=== PATIENT | male | born 1965 | race Two or more races ===

== ENCOUNTER 2017-04-12 09:39 | Inpatient (IN) | payer MEDICARE, MEDICAID ==
[2017-04-12] VITALS (37 sets, daily range): BP systolic 66–137; BP diastolic 28–91
[~2017-04-12] VITALS: Ht 177.8 cm; Wt 91.2 kg
[2017-04-12] MEDS ORDERED: IV NS 0.9% 1,000 ML BAG IV ONE (10:00)
[2017-04-12] MEDS ORDERED: PIPERACILLIN /TAZOBACTAM 3.375 G in IV D5W 50 ML IV ONE (10:00)
[2017-04-12] MEDS ORDERED: VANCOMYCIN 1 GM in IV D5W 250 ML IV ONE (10:00)
--- NOTE | 2017-04-12 10:00 | NUR ---
BBRA 79 FRM HOME C/O WEAKNESS AND SOB X 2 WEEKS. SEEN BY MD FOR EVAL. NOTED COLD SKIN WITH CORE TEMP OF 92. FAMILY MEMBER AT BS FOR INFO. NOTED AMPUTATED FEET. SAFETY AND COMFORT MEASURES PROVIDED. WILL MONITOR.
[2017-04-12 10:15] LABS: BASOPHILS % (AUTO) 2.1 % (0.0-2.0); EOSINOPHILS % (AUTO) 0.1 % (0.0-6.0); HEMATOCRIT 37 % (39-51); HEMOGLOBIN 11.6 g/dL (13.5-17.5); LYMPHOCYTES # (AUTO) 2.9 /CMM (0.8-4.8); MEAN CORPUSCULAR HEMOGLOBIN 28 PG (26.0-33.0); MEAN CORPUSCULAR HGB CONC 31 g/dl (31.0-36.0); MEAN CORPUSCULAR VOLUME 90 fL (80-96); MONOCYTES # (AUTO) 0.5 /CMM (0.1-1.30); NEUTROPHILS # (AUTO) 43.1 /CMM (1.8-8.9); NEUTROPHILS % (AUTO) 90.8 % (43.0-81.0); RDW COEFFICIENT OF VARIATION 17.5 (11.5-15.0); RED BLOOD CELL COUNT(AUTO) 4.15 MIL/uL (4.5-6.0)
--- NOTE | 2017-04-12 10:15 | NUR ---
IV ACCESS STARTED X 2. BLOOD AND CULTURES DRAWN. PER PT HE DOES NOT PRODUCE URINE ANYMORE. AWARE.
[2017-04-12 10:19] LABS: PLATELET COUNT (AUTO) 995 /CMM (150-450); WHITE BLOOD COUNT (AUTO) 47.5 K/uL (4.3-11.0)
[2017-04-12] MEDS ORDERED: MORPHINE SULFATE INJ 4 MG/ML DISP.SYRIN ONE (10:26)
[2017-04-12] MEDS ORDERED: ONDANSETRON HCL 4 MG/5 ML SOLUTION ONE (10:26)
[2017-04-12 10:27] LABS: CALCIUM, SERUM 9.7 mg/dL (8.5-10.1); CHLORIDE 88 mmol/L (98-107); GLUCOSE 110 mg/dL (74-106); POTASSIUM 4.4 mmol/L (3.5-5.1); SODIUM SERUM 138 mmol/L (136-145); UREA NITROGEN, BLOOD 57 mg/dL (7-18)
[2017-04-12 10:28] LABS: INR 1.31 (0.85-1.15)
[2017-04-12 10:29] LABS: CREATININE 13.2 mg/dL (0.6-1.3)
[2017-04-12] MEDS ORDERED: ONDANSETRON HCL/PF 4 MG/2 ML VIAL IV ONE (10:30)
[2017-04-12] MEDS ORDERED: MORPHINE SULFATE INJ 2 MG/ML DISP.SYRIN IV ONE (10:30)
--- NOTE | 2017-04-12 10:30 | NUR ---
PT MEDICATED ORDERED.
[2017-04-12 10:32] LABS: TROPONIN I < 0.017 ng/mL (0.00-0.056)
[2017-04-12 10:33] LABS: ALANINE AMINOTRANSFERASE 38 U/L (12-78); ALBUMIN 2.8 g/dL (3.4-5.0); ALKALINE PHOSPHATASE 106 U/L (46-116); ASPARTATE AMINOTRANSFERASE 32 U/L (15-37); BILIRUBIN,DIRECT 0.2 mg/dL (0.0-0.2); BILIRUBIN,TOTAL 0.5 mg/dL (0.2-1.0); TOTAL PROTEIN, SERUM 9.4 g/dL (6.4-8.2)
[2017-04-12 10:40] LABS: BAND % (MANUAL) 4 % (0.0-5.0); LYMPHOCYTES % (MANUAL) 12 % (16-48); METAMYELOCYTES % 1 % (0-0); MONOCYTES % (MANUAL) 5 % (0-11.0); MYELOCYTES % 1 % (0-0); NEUTROPHILS % (MANUAL) 77 (42-76)
--- NOTE | 2017-04-12 10:40 | NUR ---
RT AT FOR ABG.
--- NOTE | 2017-04-12 10:43 | NUR ---
IRVING AT BS.
[2017-04-12 11:00] LABS: CARBON DIOXIDE 3 mmol/L (21-32)
[2017-04-12 11:48] LABS: ABG BASE EXCESS -32.7 mmol/L; ABG OXYGEN SATURATION 78.4 % (92.0-98.5); ABG PCO2 21.5 mmHg (35.0-45.0); ABG PH 6.685 (7.350-7.450); COHb 0.1 % (0.5-1.5); MetHb 0.7 % (0.0-1.5); O2Hb 77.8 % (94.0-97.0); SITE, ABG LEFT ARM
[2017-04-12] MEDS ORDERED: Sodium Bicarbonate 150 MEQ in IV NS 0.9% 1,000 ML IV PRN (12:00)
[2017-04-12] MEDS ORDERED: SODIUM BICARBONATE SYR 50 MEQ/50 ML DISP.SYRIN IV ONE ×3 (12:00→14:00)
[2017-04-12] MEDS ORDERED: SODIUM BICARBONATE SYR 50 MEQ/50 ML DISP.SYRIN ONE (12:12)
--- NOTE | 2017-04-12 12:45 | NUR ---
REPORT GIVEN TO ROCHELLE QUEZADA FOR ICU 257.
[2017-04-12] MEDS ORDERED: NOREPINEPHRINE 8 MG in IV D5W 500 ML IV PRN ×2 (13:00→21:00)
--- NOTE | 2017-04-12 13:15 | NUR ---
ERP PROGRAMMER ADMITTED PT INTO ICU FROM ER VIA [facility] WITH MONITOR. PT ADMITTED FOR SEPSIS AND ABNORMAL LABS. PT HYPOTHERMIC IN ER. ROBIN HUGGER IN PLACE. PT AROUSEABLE, ABLE TO FOLLOW COMMANDS. SON HERE TO SEE PT.
[2017-04-12] MEDS ORDERED: FEE PK DOSING 1 MIN EA MC ONE (13:19)
[2017-04-12 13:36] LABS: ABG BASE EXCESS -30.7 mmol/L; ABG OXYGEN SATURATION 96.6 % (92.0-98.5); ABG PCO2 15.8 mmHg (35.0-45.0); AaDO2 30.7 mmHg; COHb 0.3 % (0.5-1.5); MetHb 1.4 % (0.0-1.5); SITE, ABG Right Femoral
--- NOTE | 2017-04-12 14:30 | NUR ---
CLINICAL DIETICIAN PICC LINE PLACED. DRESSING INTACT. LINE FLUSHED WITH NS.
--- NOTE | 2017-04-12 15:03 | NUR ---
OK TO USE PICC LINE.
--- NOTE | 2017-04-12 15:30 | NUR ---
SHEETER HELPER PT NEEDS IMMEDIATE DIALYSIS PER NEPHROLOGY. DIALYSIS CATHETER PLACED BY DR WILDER AFTER CONSENT OBTAINED FROM SON. DIALYSIS BEING SET UP NOW.
[2017-04-12] MEDS: PIPERACILLIN /TAZOBACTAM 2.25 G in IV NS 0.9% 50 ML IV SCH ×2 (15:45→23:29)
[2017-04-12] MEDS ORDERED: ALBUMIN 25% 25 GM in PREMIX 1 EA IV PRN (16:00)
[2017-04-12] MEDS ORDERED: CALC0.253 PO (17:02)
[2017-04-12] MEDS ORDERED: SEVE800T8 PO (17:02)
[2017-04-12] MEDS ORDERED: FOLI1TAB16 PO (17:02)
[2017-04-12] MEDS ORDERED: JANUMET PO (17:02)
[2017-04-12] MEDS ORDERED: CALC667C6 PO (17:02)
[2017-04-12] MEDS ORDERED: ATOR20TA PO (17:02)
[2017-04-12] MEDS ORDERED: ASPI-1169 PO (17:02)
[2017-04-12] MEDS ORDERED: AMLO10TA2 PO (17:02)
[2017-04-12] MEDS ORDERED: VITA1TAB18 PO (17:02)
[2017-04-12] MEDS ORDERED: ERGO500014 PO (17:02)
[2017-04-12] MEDS ORDERED: NIFE60TA69 PO (17:02)
[2017-04-12] MEDS ORDERED: ATOR40TA PO (17:16)
--- NOTE | 2017-04-12 17:45 | NUR ---
MSWS HEMODIALYSIS COMPLETED. TOTAL OUTPUT 300 ML. PT MORE AWAKE NOW.
--- NOTE | 2017-04-12 19:00 | NUR ---
SALES ASSOCIATE KEY HOLDER PTS TEMPERATURE NORMALIZING WITH ROBIN HUGGER. PT MORE AWAKE AND FOLLOWING COMMANDS. SPO2 100% ON 4L NC. CARE ENDORSED TO RECRUITMENT SPECIALIST RN.
--- NOTE | 2017-04-12 20:00 | NUR ---
received pt from day shift, alert, follows commands, SR, SBP 78-82, started on levo at 2mcg, receiving NS with 3 amps of bicarb, on 4L 02 sat well, NPO, anuric, HD pt, had HD today, v/s stable, no pain, pt turns and repositions by himself, family at the bedside.
[2017-04-12] MEDS: Sodium Bicarbonate 150 MEQ in IV NS 0.9% 1,000 ML IV PRN (21:04)
[2017-04-12] MEDS: FLUCONAZOLE IN NS 100 MG in PREMIX 1 EA IV SCH ×2 (21:07)
[2017-04-12] MEDS: HEPARIN SODIUM, PORCINE 5000 UNITS/1 ML VIAL SQ SCH (21:08)
[2017-04-13] VITALS (43 sets, daily range): BP systolic 90–160; BP diastolic 30–81
--- NOTE | 2017-04-13 00:11 | NUR ---
pt is resting in the bed, alert, follows commands, SR, receiving levo at 4mcg, v/s stable, no pain.
[2017-04-13] MEDS: Sodium Bicarbonate 150 MEQ in IV NS 0.9% 1,000 ML IV PRN (02:32)
--- NOTE | 2017-04-13 04:15 | NUR ---
pt is resting in the bed, alert, follows commands, SR, on levo at 2mcg, on 4L 02 sat well, v/s stable, no pain, pt cleaned and changed.
[2017-04-13 05:00] LABS: BASOPHILS % (AUTO) 0.1 % (0.0-2.0); HEMATOCRIT 25 % (39-51); LYMPHOCYTES # (AUTO) 1.5 /CMM (0.8-4.8); LYMPHOCYTES % (AUTO) 6.3 % (20.0-44.0); MEAN CORPUSCULAR HEMOGLOBIN 28 PG (26.0-33.0); MEAN CORPUSCULAR HGB CONC 32 g/dl (31.0-36.0); MEAN CORPUSCULAR VOLUME 87 fL (80-96); MONOCYTES # (AUTO) 1.8 /CMM (0.1-1.30); MONOCYTES % (AUTO) 7.9 % (2.0-12.0); NEUTROPHILS # (AUTO) 19.9 /CMM (1.8-8.9); NEUTROPHILS % (AUTO) 85.7 % (43.0-81.0); PLATELET COUNT (AUTO) 491 /CMM (150-450); RDW COEFFICIENT OF VARIATION 18.2 (11.5-15.0); WHITE BLOOD COUNT (AUTO) 23.2 K/uL (4.3-11.0)
[2017-04-13 05:17] LABS: CALCIUM, SERUM 7.6 mg/dL (8.5-10.1); MAGNESIUM 1.9 mg/dL (1.8-2.4); POTASSIUM 4.8 mmol/L (3.5-5.1)
[2017-04-13 05:22] LABS: IRON, SERUM 19 ug/dl (50-175); TOTAL IRON BINDING CAPACITY 108 ug/dl (250-450)
[2017-04-13 05:29] LABS: CREATININE 7.6 mg/dL (0.6-1.3)
[2017-04-13 05:30] LABS: FERRITIN 952 ng/mL (8-388)
[2017-04-13 05:39] LABS: LYMPHOCYTES % (MANUAL) 7 % (16-48); MONOCYTES % (MANUAL) 8 % (0-11.0); NEUTROPHILS % (MANUAL) 85 (42-76)
--- NOTE | 2017-04-13 05:39 | NUR ---
BS 21, D50 given.
[2017-04-13] MEDS ORDERED: DEXTROSE 50%-WATER 50 ML DISP.SYRIN IVP ONE (06:00)
--- NOTE | 2017-04-13 07:30 | NUR ---
ICU/RN: Pt received in bed, A&Ox4, denies pain and discomfort. L foot stump elevated, no s/s infection, edges well approximated, R foot digit amputation dressing C/D/I. Off Levo at 0700, will maintain SBP within parameters. Educated on POC, verbalized understanding.
[2017-04-13] MEDS: PANTOPRAZOLE 40 MG VIAL IV SCH (08:26)
[2017-04-13] MEDS: HEPARIN SODIUM, PORCINE 5000 UNITS/1 ML VIAL SQ SCH ×2 (08:27→18:11)
[2017-04-13] MEDS: PIPERACILLIN /TAZOBACTAM 2.25 G in IV NS 0.9% 50 ML IV SCH ×3 (08:27→23:42)
--- NOTE | 2017-04-13 08:30 | NUR ---
RN WILL CLARIFY CT ORDER. REASON FOR EXAM IS TO RULE OUT MASS OR MALIGNANCY, WHICH IS USUALLY DONE WITH CONTRAST.
--- NOTE | 2017-04-13 09:15 | NUR ---
ICU/RN: Dr Savage at bedside; updated on pt status.
[2017-04-13 09:36] LABS: ABG OXYGEN SATURATION 92.4 % (92.0-98.5); ABG PCO2 25.7 mmHg (35.0-45.0); ABG PO2 78.2 mmHg (75.0-100.0); AaDO2 40.8 mmHg; COHb 0.2 % (0.5-1.5); MetHb 0.8 % (0.0-1.5); O2Hb 91.5 % (94.0-97.0); SITE, ABG Left Brachial; VENT MODE, BG ROOM AIR
--- NOTE | 2017-04-13 09:45 | NUR ---
ICU/RN: Dr Taylor at bedside for pulmonology consult, updated on pt status, labs and and ABG reviewed. No distress on RA.
[2017-04-13] MEDS ORDERED: IOHEXOL-300 100 ML VIAL IV ONE (11:11)
[2017-04-13] MEDS ORDERED: CT SWABBABLE VALVE TRANS SET 1 EA INFUS.SET MC ONE (11:12)
[2017-04-13] MEDS ORDERED: IV NS 0.9% 250 ML IV ONE (11:12)
--- NOTE | 2017-04-13 13:45 | NUR ---
ICU/RN: Allan Cornelius at bedside; updated on status, labs, ABG results discussed. Per ARMHOLE SEWER, pt maybe okay to downgrade tomorrow.
--- NOTE | 2017-04-13 14:05 | NUR ---
ICU/RN: Dr Engel rounds; updated on labs, H/H drop, per MD continue current orders. Pt with standing transfusion orders.
--- NOTE | 2017-04-13 14:30 | NUR ---
ICU/RN: HD DAMIEN Saravia collected 30cc peritoneal fluid from peritoneal dialysis catheter. Specimen sent to lab. driver retraining instructor updated.
[2017-04-13] MEDS ORDERED: VANCOMYCIN 500 MG in IV NS 0.9% 100 ML IV PRN (16:00)
--- NOTE | 2017-04-13 16:00 | NUR ---
ICU/RN: Pt off HD; 2L out. Pt tolerated well. SBP in 120's.
--- NOTE | 2017-04-13 19:10 | NUR ---
ICU/RN: Pt in bed, no distress noted, MIKAYLA PICC patent intact, PD Cath dressing C/D/I, R fem HD cath C/D/I. Breathing even and unlabored. Off levo. Care endorsed for VERONICA
--- NOTE | 2017-04-13 20:08 | NUR ---
received pt from day shift, a/o x4, SR, on RA, sat well, lungs partially congested, no edema, tolerates diet, anuric, HD was today, wounds noted, dressing intact, no bleeding, PD cath intact, v/s stable, no pain, pt turns and repositions by himself, family at the bedside.
[2017-04-13] MEDS: FLUCONAZOLE IN NS 100 MG in PREMIX 1 EA IV SCH ×2 (20:11)
[2017-04-14] VITALS (26 sets, daily range): BP systolic 116–171; BP diastolic 45–89
--- NOTE | 2017-04-14 00:29 | NUR ---
pt is resting in the bed, alert, follows commands, SR, v/s stable, no pain.
--- NOTE | 2017-04-14 04:31 | NUR ---
pt is resting in the bed, alert, follows commands, SR, RA, v/s stable, no pain, pt cleaned and changed.
[2017-04-14 05:12] LABS: BASOPHILS % (AUTO) 0.3 % (0.0-2.0); EOSINOPHILS % (AUTO) 0.3 % (0.0-6.0); HEMATOCRIT 23 % (39-51); HEMOGLOBIN 7.5 g/dL (13.5-17.5); LYMPHOCYTES # (AUTO) 0.9 /CMM (0.8-4.8); LYMPHOCYTES % (AUTO) 7.5 % (20.0-44.0); MEAN CORPUSCULAR HEMOGLOBIN 27 PG (26.0-33.0); MEAN CORPUSCULAR HGB CONC 32 g/dl (31.0-36.0); MEAN CORPUSCULAR VOLUME 85 fL (80-96); MONOCYTES # (AUTO) 0.8 /CMM (0.1-1.30); MONOCYTES % (AUTO) 6.6 % (2.0-12.0); NEUTROPHILS # (AUTO) 10.7 /CMM (1.8-8.9); NEUTROPHILS % (AUTO) 85.3 % (43.0-81.0); PLATELET COUNT (AUTO) 323 /CMM (150-450); RDW COEFFICIENT OF VARIATION 18.7 (11.5-15.0); RED BLOOD CELL COUNT(AUTO) 2.74 MIL/uL (4.5-6.0); WHITE BLOOD COUNT (AUTO) 12.5 K/uL (4.3-11.0)
[2017-04-14 05:34] LABS: CALCIUM, SERUM 7.1 mg/dL (8.5-10.1); CREATININE 6.3 mg/dL (0.6-1.3); POTASSIUM 3.3 mmol/L (3.5-5.1)
[2017-04-14 08:11] LABS: *SPE A/G RATIO 1.2 (0.7-1.7); *SPE ALBUMIN 3.2 g/dL (2.9-4.4); *SPE ALPHA-1-GLOBULIN 0.2 g/dL (0.0-0.4); *SPE ALPHA-2-GLOBULIN 0.7 g/dL (0.4-1.0); *SPE BETA GLOBULIN 0.5 g/dL (0.7-1.3); *SPE GLOBULIN, TOTAL 2.7 g/dL (2.2-3.9); *SPE M-SPIKE Not Observed g/dL (Not Observed); *SPEGAMMA GLOBULIN 1.3 g/dL (0.4-1.8); IMMUNOGLOBULIN A, SERUM 222 mg/dL (90-386); IMMUNOGLOBULIN M, SERUM 98 mg/dL (20-172)
[2017-04-14] MEDS: PIPERACILLIN /TAZOBACTAM 2.25 G in IV NS 0.9% 50 ML IV SCH ×3 (08:21→23:49)
[2017-04-14] MEDS: PANTOPRAZOLE 40 MG VIAL IV SCH ×2 (08:21→16:43)
[2017-04-14] MEDS: HEPARIN SODIUM, PORCINE 5000 UNITS/1 ML VIAL SQ SCH ×2 (08:23→09:00)
--- NOTE | 2017-04-14 08:29 | NUR ---
WOUND CARE CONSULT WOUND CARE RECEIVED CONSULT FOR S/P SURGICAL WOUNDS. WOUND CARE WILL DEFER TO SURGICAL TEAM WHO ARE CURRENTLY FOLLOWING. PATIENT WITH MELODY AT 18, ALL PRESSURE ULCER PREVENTION MEASURES NOTED TO BE IN PLACE AT THIS TIME.
--- NOTE | 2017-04-14 08:30 | NUR ---
ICU/RN: Pt assisted from BSC to bed requiring minimal assist. Tolerated well. Soft brown BM x1 noted. Due meds administered. at bedside. Educated. Ate 25% of meal, pt family to bring food for pt.
[2017-04-14] MEDS ORDERED: NOREPINEPHRINE 8 MG in IV D5W 500 ML IV PRN (09:30)
[2017-04-14 10:19] LABS: IMMUNOGLOBULIN G, SERUM 1177 mg/dL (700-1600)
--- NOTE | 2017-04-14 10:30 | NUR ---
ICU/RN: Dr Newman at bedside, had lengthy dw pt who is considering switching from peritoneal dialysis to HD. Risks and benefits explained. Per Dr Newman for HD tomorrow and to receive Epogen dose.
[2017-04-14] MEDS ORDERED: NIFEdipine XL 60 MG TAB PO SCH (11:00)
[2017-04-14] MEDS ORDERED: AMLODIPINE BESYLATE 10 MG TABLET PO SCH (11:00)
[2017-04-14] MEDS ORDERED: ONDANSETRON HCL/PF 4 MG/2 ML VIAL IV PRN (12:30)
[2017-04-14 12:33] LABS: OCCULT BLOOD STOOL POSITIVE (NEGATIVE)
[2017-04-14] MEDS ORDERED: DEXTROSE 50%-WATER 50 ML DISP.SYRIN IV PRN (13:30)
--- NOTE | 2017-04-14 13:30 | NUR ---
ICU/RN: Allan Cornelius NP at bedside. Updated on pt status. Labs, imaging results discussed. For transfer to [facility] today. Pt in agreement with plan.
[2017-04-14] MEDS: LACTOBACILLUS RHAMNOSUS GG 1 EACH CAP.SPRINK PO SCH (16:49)
[2017-04-14] MEDS ORDERED: PANTOPRAZOLE 40 MG TABLET.DR PO SCH (17:00)
--- NOTE | 2017-04-14 17:30 | NUR ---
ICU/RN: Pt transferred to [facility] via ACLS protocol, pt own wheelchair and belongings transferred with pt. Blood glucose 125 mg/Dl. NPO status mili Cornelius, keep on clear liquids for now per CREPE MACHINE OPERATOR.
--- NOTE | 2017-04-14 17:45 | NUR ---
ICU/RN: Mirna Patterson, SWATI on floor for GI consult, informed of pt transfer to [facility]. Informed that pt is on clear liquids, pending 1U PRBC transfusion, rectal bleed with dark tarry stool noted. Informed that pt wishes to speak with ASSISTED LIVING EXECUTIVE DIRECTOR.
[2017-04-14] MEDS: BLOOD SUGAR DIAGNOSTIC 1 EACH STRIP IN SCH ×2 (17:51→21:51)
[2017-04-14] MEDS: ATORVASTATIN 40 MG TABLET PO SCH (18:53)
[2017-04-14] MEDS: SEVELAMER CARBONATE 800 MG TABLET PO SCH (18:54)
[2017-04-14] MEDS: CALCIUM ACETATE 667 MG TABLET PO SCH (18:54)
--- NOTE | 2017-04-14 19:21 | NUR ---
[facility] RN NOTE TRANSFERRED PATIENT VIA GURNEY FROM ICU . PT STABLE V/S STABLE. BEGAN 1 UNIT OF PRBC. PT TABLE REPORT GIVEN TO PM NURSE FOR VERONICA. PT ON RA NO SOB OR PAIN.
--- NOTE | 2017-04-14 19:30 | NUR ---
[facility]/RN NOTES: RECEIVED PT. IN BED W/ HOB ELEVATED . NO S/S OF RESPIRATORY DISTRESS NOTED. A/O X 4. SPEAKS [place] AND [place]. ABLE TO MAKE NEEDS KNOWN. HAS A MIKAYLA PICC LINE W/ DRESSING INTACT AND CLEAN W/ NO S/S OF INFECTION/INFECTION NOTED. BLOOD TRANSFUSION GOING W/ NO S/S OF ADVERSE REACTION. HAS RIGHT FEMORAL HD CATH INPLACE. [facility]. FOR HD ON 04/15/17. ON TELE MONITOR SR @ 65. DENIES ANY C/O CHEST PAIN OR SOB AT PRESENT. BLOOD SUGAR 120 AT 2200. CALL LIGHT W/ REACH. WILL CONTINUE TO MONITOR.
[2017-04-14] MEDS: FLUCONAZOLE IN NS 100 MG in PREMIX 1 EA IV SCH ×2 (21:50)
[2017-04-14] MEDS: METOCLOPRAMIDE HCL 10 MG/2 ML VIAL IV SCH (21:51)
[2017-04-15] VITALS: BP 163/55
[2017-04-15] MEDS: METOCLOPRAMIDE HCL 10 MG/2 ML VIAL IV SCH ×3 (01:23→17:35)
[2017-04-15 04:00] VITALS: BP_SYST 147; BP_SYST 161; BP_DIAS 55; BP_DIAS 63
[2017-04-15 06:30] LABS: BASOPHILS % (AUTO) 0.3 % (0.0-2.0); EOSINOPHILS # (AUTO) 0.1 /CMM (0.0-0.7); HEMATOCRIT 27 % (39-51); LYMPHOCYTES # (AUTO) 0.8 /CMM (0.8-4.8); MEAN CORPUSCULAR HEMOGLOBIN 29 PG (26.0-33.0); MEAN CORPUSCULAR HGB CONC 34 g/dl (31.0-36.0); MEAN CORPUSCULAR VOLUME 85 fL (80-96); MONOCYTES # (AUTO) 0.7 /CMM (0.1-1.30); MONOCYTES % (AUTO) 7.3 % (2.0-12.0); NEUTROPHILS % (AUTO) 83.4 % (43.0-81.0); PLATELET COUNT (AUTO) 293 /CMM (150-450); RDW COEFFICIENT OF VARIATION 16.8 (11.5-15.0); RED BLOOD CELL COUNT(AUTO) 3.17 MIL/uL (4.5-6.0); WHITE BLOOD COUNT (AUTO) 9.6 K/uL (4.3-11.0)
[2017-04-15 06:55] LABS: CALCIUM, SERUM 7.4 mg/dL (8.5-10.1); POTASSIUM 3.1 mmol/L (3.5-5.1)
[2017-04-15 06:57] LABS: CREATININE 8.3 mg/dL (0.6-1.3)
--- NOTE | 2017-04-15 07:29 | NUR ---
[facility]/RN NOTES: NO ACUTE DISTRESS NOTED. REPORT GIVEN TO NEXT SHIFT NURSE FOR VERONICA.
[2017-04-15 08:00] VITALS: BP 168/54
[2017-04-15] MEDS: LACTOBACILLUS RHAMNOSUS GG 1 EACH CAP.SPRINK PO SCH ×2 (08:59→16:17)
[2017-04-15] MEDS: SEVELAMER CARBONATE 800 MG TABLET PO SCH ×3 (08:59→17:34)
[2017-04-15] MEDS: PANTOPRAZOLE 40 MG VIAL IV SCH ×2 (08:59→16:17)
[2017-04-15] MEDS: CALCITRIOL 0.25 MCG CAPSULE PO SCH (09:00)
[2017-04-15] MEDS: ASPIRIN 81 MG TAB.CHEW PO SCH (09:00)
[2017-04-15] MEDS: VITAMIN B COMP W-C 1 TAB TABLET PO SCH (09:00)
[2017-04-15] MEDS: FOLIC ACID 1 MG TABLET PO SCH (09:00)
[2017-04-15] MEDS: CALCIUM ACETATE 667 MG TABLET PO SCH ×3 (09:01→17:34)
[2017-04-15] MEDS: BLOOD SUGAR DIAGNOSTIC 1 EACH STRIP IN SCH ×4 (09:01→21:28)
[2017-04-15] MEDS: PIPERACILLIN /TAZOBACTAM 2.25 G in IV NS 0.9% 50 ML IV SCH ×3 (09:02→23:58)
[2017-04-15] MEDS: NIFEdipine XL (30MG) 30 MG TAB PO SCH (09:07)
[2017-04-15 12:00] VITALS: BP 175/86
[2017-04-15] MEDS: INSULIN REGULAR, HUMAN 100 UNIT/ML 3 ML VIAL SQ PRN ×2 (12:21→17:51)
[2017-04-15] MEDS ORDERED: POTASSIUM CHLORIDE 10 MEQ TABLET.SA PO ONE (13:00)
[2017-04-15] MEDS: SOD FERRIC GLUC 125 MG in IV NS 0.9% 100 ML IV SCH (13:42)
[2017-04-15] MEDS ORDERED: EPOETIN ALFA (10,000 UNIT) 10,000 UNIT/ML VIAL IV ONE (15:00)
[2017-04-15 16:00] VITALS: BP 147/63
[2017-04-15] MEDS: ATORVASTATIN 40 MG TABLET PO SCH (17:34)
--- NOTE | 2017-04-15 19:30 | NUR ---
[facility]/RN NOTES: RECEIVED PT. IN BED W/ HOB ELEVATED . NO S/S OF RESPIRATORY DISTRESS NOTED. A/O X 4. SPEAKS [place] AND [place]. ABLE TO MAKE NEEDS KNOWN. HAS A MIKAYLA PICC LINE W/ DRESSING INTACT AND CLEAN W/ NO S/S OF INFECTION/INFECTION NOTED. BLOOD TRANSFUSION GOING W/ NO S/S OF ADVERSE REACTION. HAS RIGHT FEMORAL HD CATH INPLACE. WAS DIALYZED TODAY. ON TELE MONITOR SR @ 74. DENIES ANY C/O CHEST PAIN OR SOB AT PRESENT. BLOOD SUGAR 120 AT 2200. CALL LIGHT W/ REACH. WILL CONTINUE TO MONITOR.
[2017-04-15 20:00] VITALS: BP 138/40
[2017-04-15] MEDS ORDERED: FLUCONAZOLE (100 MG) 100 MG TABLET PO SCH (21:00)
[2017-04-16] VITALS: BP 146/56
[2017-04-16 00:42] VITALS: BP 146/56
[2017-04-16] MEDS ORDERED: METOCLOPRAMIDE HCL 10 MG/2 ML VIAL ONE (03:48)
[2017-04-16] MEDS: METOCLOPRAMIDE HCL 10 MG/2 ML VIAL IV SCH (03:52)
[2017-04-16 04:00] VITALS: BP 148/50
[2017-04-16 07:27] LABS: CALCIUM, SERUM 7.6 mg/dL (8.5-10.1); CREATININE 6.8 mg/dL (0.6-1.3); POTASSIUM 3.1 mmol/L (3.5-5.1)
--- NOTE | 2017-04-16 07:39 | NUR ---
[facility] RN NOTE PATIENT IN BED , ALERT ORIENTED X4 , RT FEMORAL HD CATH IN PLACE , RT UPPER ARM PICC LINE IN PLACE , BED IN LOWEST AND LOCKED POSITION , ALL NEEDS ATTENDED , ON RA, NO SOB NOTED , CALL LIGHT WITHIN REACH , PLAN OF CARE DISCUSSED WITH PATIENT, WILL CONT TO MONITOR CLOSELY, ON TELE MONITOR SR
--- NOTE | 2017-04-16 07:40 | NUR ---
[facility]/RN NOTES: NO ACUTE CHANGES NOTED DURING THIS SHIFT. REPORT GIVEN TO AM NURSE FOR VERONICA.
[2017-04-16] MEDS: CALCIUM ACETATE 667 MG TABLET PO SCH ×3 (07:54→17:26)
[2017-04-16] MEDS: SEVELAMER CARBONATE 800 MG TABLET PO SCH ×3 (07:54→17:26)
[2017-04-16] MEDS: PIPERACILLIN /TAZOBACTAM 2.25 G in IV NS 0.9% 50 ML IV SCH ×3 (07:59→23:27)
[2017-04-16 08:00] VITALS: BP 146/77
[2017-04-16] MEDS: BLOOD SUGAR DIAGNOSTIC 1 EACH STRIP IN SCH ×4 (08:01→22:07)
[2017-04-16] MEDS: ASPIRIN 81 MG TAB.CHEW PO SCH (08:17)
[2017-04-16] MEDS: FOLIC ACID 1 MG TABLET PO SCH (08:17)
[2017-04-16] MEDS: LACTOBACILLUS RHAMNOSUS GG 1 EACH CAP.SPRINK PO SCH (08:17)
[2017-04-16] MEDS: NIFEdipine XL (30MG) 30 MG TAB PO SCH (08:17)
[2017-04-16] MEDS: PANTOPRAZOLE 40 MG VIAL IV SCH ×2 (08:17→16:01)
[2017-04-16] MEDS: VITAMIN B COMP W-C 1 TAB TABLET PO SCH (08:17)
[2017-04-16] MEDS: CALCITRIOL 0.25 MCG CAPSULE PO SCH (08:17)
[2017-04-16] MEDS: INSULIN REGULAR, HUMAN 100 UNIT/ML 3 ML VIAL SQ PRN ×3 (08:22→17:06)
[2017-04-16] MEDS: METOCLOPRAMIDE HCL 10 MG TABLET PO SCH ×2 (10:03→17:26)
--- NOTE | 2017-04-16 12:00 | NUR ---
MS RN NOTE ALL NEEDS ATTENDED, DRESSING ON RT FOOT CHANGED ,KEEP AFFECTED AREA CLEAN DRY
[2017-04-16] MEDS ORDERED: POTASSIUM CHLORIDE 20 MEQ TAB.PRT.SR PO ONE (13:30)
[2017-04-16] MEDS: SOD FERRIC GLUC 125 MG in IV NS 0.9% 100 ML IV SCH (14:31)
--- NOTE | 2017-04-16 15:00 | NUR ---
MS RN NOTE FAMILY AT BEDSIDE, NOT IN ACUTE DISTRESS
[2017-04-16 16:00] VITALS: BP 133/50
[2017-04-16] MEDS: ATORVASTATIN 40 MG TABLET PO SCH (17:26)
[2017-04-16] MEDS ORDERED: EPOETIN ALFA (20,000 UNIT) 20,000 UNIT/ML VIAL SQ SCH (18:00)
--- NOTE | 2017-04-16 18:00 | NUR ---
MS RN NOTE PER [facility] GI RN STONE BANKER CONSENT FOR EGD AND COLONOSCOPY PATIENT SIGNED CONSENT FAMILY AT BEDSIDE CALLED TP PHARMACY X2 ABOUT TO BRING EPOGEN, STATED THAT WILL BRING SOON
[2017-04-16] MEDS ORDERED: MAGNESIUM CITRATE 296 ML BOTTLE PO ONE (18:30)
[2017-04-16] MEDS ORDERED: NA PHOS,M-B/NA PHOS,DI-BA 1 EA ENEMA RC PRN (18:30)
[2017-04-16] MEDS ORDERED: PEG 3350/NA SULF,BICARB,CL/KCL 4,000 ML BOTTLE PO ONE (18:30)
--- NOTE | 2017-04-16 18:30 | NUR ---
MS RN NOTE STARTED TO GIVE MAG CITRATE AND GOLYTELY ,ENDORSED NEXT SHIFT DAMIEN ORELLANA TO CONT GIVE MAG CITRATE AND GOLYTELY, WILL BE NPO AFTER MID MIDNIGHT , BEDSIDE COMMODE AT BEDSIDE
[2017-04-16 18:52] LABS: HEMOGLOBIN 9.2 g/dL (13.5-17.5)
--- NOTE | 2017-04-16 19:30 | NUR ---
PT IN BED AWAKE AND ALERT. BREATHING EVENLY. NO SOB. NAD. SKIN WARM AND DRY. DRINKING MG CITRATE . PT WAS INSTRUCTED RE TAKING THE GOLYTELY AND NPO POST MID-NIGHT, W/ UNDERSTANDING. NEEDS ATTENDED. BED LOW LOCKED. CALL LIGHT WITHIN REACH. WILL CONT TO MONITOR .
[2017-04-16 20:00] VITALS: BP 121/76
--- NOTE | 2017-04-16 23:20 | NUR ---
REMINDER GIVEN TO THE PT REGARDING FINISHING THE [email or web address]. PT STATED HE ALREADY HAD 5 BMs AND HIS LAST BM IS ALREADY CLEAR. ASKED PT TO CALL RN NEXT TIME HE HAS A BM. WILL F/U
[2017-04-17] MEDS: METOCLOPRAMIDE HCL 10 MG TABLET PO SCH ×3 (02:01→18:13)
[2017-04-17 04:05] VITALS: BP 132/73
[2017-04-17] MEDS: BLOOD SUGAR DIAGNOSTIC 1 EACH STRIP IN SCH ×3 (06:51→18:13)
[2017-04-17 07:02] LABS: BASOPHILS % (AUTO) 0.3 % (0.0-2.0); EOSINOPHILS # (AUTO) 0.3 /CMM (0.0-0.7); EOSINOPHILS % (AUTO) 2.5 % (0.0-6.0); HEMATOCRIT 29 % (39-51); HEMOGLOBIN 9.6 g/dL (13.5-17.5); LYMPHOCYTES % (AUTO) 9.5 % (20.0-44.0); MEAN CORPUSCULAR HEMOGLOBIN 29 PG (26.0-33.0); MEAN CORPUSCULAR HGB CONC 33 g/dl (31.0-36.0); MEAN CORPUSCULAR VOLUME 86 fL (80-96); MONOCYTES # (AUTO) 0.8 /CMM (0.1-1.30); MONOCYTES % (AUTO) 7.7 % (2.0-12.0); NEUTROPHILS # (AUTO) 8.8 /CMM (1.8-8.9); PLATELET COUNT (AUTO) 278 /CMM (150-450); RDW COEFFICIENT OF VARIATION 17.2 (11.5-15.0); RED BLOOD CELL COUNT(AUTO) 3.38 MIL/uL (4.5-6.0)
--- NOTE | 2017-04-17 07:10 | NUR ---
PT IN BED AWAKE AND ALERT, NO ACUTE EVENT DURING THE NIGHT , NPO FOR EGD AND COLONOSCOPY TODAY. PER PT HIS ALST BM WAS CLEAR. ENDORSED TO AM SHIFT FOR VERONICA.
--- NOTE | 2017-04-17 07:25 | NUR ---
ms rn initial notes Received patient sitting at the edge of the bed, on room air and tolerated well. Isabella #8 capped. Able to ambulate with FWW. Alert and oriented x 3, verbally responsive and able to make needs known. No complaint of pain or discomfort noted. Call light with in patient reach, will continue to monitor accordingly. On tele SR heart rate of 69.
[2017-04-17 07:26] LABS: CALCIUM, SERUM 7.8 mg/dL (8.5-10.1); POTASSIUM 3.5 mmol/L (3.5-5.1)
[2017-04-17 07:27] LABS: CREATININE 8.3 mg/dL (0.6-1.3)
[2017-04-17 08:00] VITALS: BP 160/62
[2017-04-17] MEDS: SEVELAMER CARBONATE 800 MG TABLET PO SCH ×3 (09:11→18:13)
[2017-04-17] MEDS: PANTOPRAZOLE 40 MG VIAL IV SCH ×2 (09:11→18:13)
[2017-04-17] MEDS: NIFEdipine XL (30MG) 30 MG TAB PO SCH (09:12)
[2017-04-17] MEDS: CALCITRIOL 0.25 MCG CAPSULE PO SCH (09:12)
[2017-04-17] MEDS: FOLIC ACID 1 MG TABLET PO SCH (09:13)
[2017-04-17] MEDS: CALCIUM ACETATE 667 MG TABLET PO SCH ×3 (09:13→18:13)
[2017-04-17] MEDS: VITAMIN B COMP W-C 1 TAB TABLET PO SCH (09:13)
[2017-04-17] MEDS: ASPIRIN 81 MG TAB.CHEW PO SCH (09:13)
--- NOTE | 2017-04-17 11:50 | NUR ---
ms rn notes Blood sugar checked 122 no coverage given.
[2017-04-17 12:00] VITALS: BP 151/74
[2017-04-17] MEDS: SOD FERRIC GLUC 125 MG in IV NS 0.9% 100 ML IV SCH (14:52)
[2017-04-17 16:00] VITALS: BP 163/65
[2017-04-17] MEDS ORDERED: PANTOPRAZOLE 40 MG TABLET.DR PO SCH (17:00)
[2017-04-17] MEDS ORDERED: SUCRALFATE 1 G TABLET PO SCH (17:00)
[2017-04-17] MEDS: ATORVASTATIN 40 MG TABLET PO SCH (18:13)
--- NOTE | 2017-04-17 18:30 | NUR ---
ms planning rn notes Discharge instructions given to patient and able to understand instructions. Signed discharge paper and belonging list, no missing items noted. Discontinue Picc line and pressured applied no bleeding noted. s/p HD with output of 2 liters, no complaint of pain or discomfort noted. HD cath discontinued as ordered after HD. No SOB or distress noted. Patient left in stable condition accompanied by sher. Flu and pneumonia vaccine refused, explained the risk and benefits x 3 and still refused. Pictures taken by night clerk RN and filed in the chart. MD and charge nurse aware.
[2017-04-20] MEDS ORDERED: ERGOCALCIFEROL (VITAMIN D 2) 50,000 UNIT CAPSULE PO SCH (09:00)
== END 2017-04-17 18:30 | disposition home or self-care (01) | DRG 871 ==
LOC: ER 09:40 → ICU 12:49 → TELE-TD 04-14 17:22 → MEDSG1 04-16 09:51
PROVIDERS: ADMIT Nurse Practitioner Acute Care; ATTEND Nurse Practitioner Acute Care
PROC: 02HV33Z Insertion of Infusion Device into Superior Vena Cava, Percutaneous Approach (ICD-10-PCS; principal; 2017-04-12)
PROC: B548ZZA Ultrasonography of Superior Vena Cava, Guidance (ICD-10-PCS; 2017-04-12)
PROC: 0JHL3XZ Insertion of Tunneled Vascular Access Device into Right Upper Leg Subcutaneous Tissue and Fascia, Percutaneous Approach (ICD-10-PCS; 2017-04-12)
PROC: 06HM33Z Insertion of Infusion Device into Right Femoral Vein, Percutaneous Approach (ICD-10-PCS; 2017-04-12)
PROC: B54BZZA Ultrasonography of Right Lower Extremity Veins, Guidance (ICD-10-PCS; 2017-04-12)
PROC: 5A1D70Z Performance of Urinary Filtration, Intermittent, Less than 6 Hours Per Day (ICD-10-PCS; 2017-04-12)
PROC: 5A1D70Z Performance of Urinary Filtration, Intermittent, Less than 6 Hours Per Day (ICD-10-PCS; 2017-04-13)
PROC: 5A1D70Z Performance of Urinary Filtration, Intermittent, Less than 6 Hours Per Day (ICD-10-PCS; 2017-04-15)
PROC: 0DB98ZX Excision of Duodenum, Via Natural or Artificial Opening Endoscopic, Diagnostic (ICD-10-PCS; 2017-04-17)
PROC: 0DB68ZX Excision of Stomach, Via Natural or Artificial Opening Endoscopic, Diagnostic (ICD-10-PCS; 2017-04-17)
PROC: 0DB58ZX Excision of Esophagus, Via Natural or Artificial Opening Endoscopic, Diagnostic (ICD-10-PCS; 2017-04-17)
PROC: 0DBL8ZX Excision of Transverse Colon, Via Natural or Artificial Opening Endoscopic, Diagnostic (ICD-10-PCS; 2017-04-17)
PROC: 5A1D70Z Performance of Urinary Filtration, Intermittent, Less than 6 Hours Per Day (ICD-10-PCS; 2017-04-17)
DX: A41.9 Sepsis, unspecified organism (principal); G93.41 Metabolic encephalopathy; J96.91 Respiratory failure, unspecified with hypoxia; I13.2 Hypertensive heart and chronic kidney disease with heart failure and with stage 5 chronic kidney disease, or end stage renal disease; J90 Pleural effusion, not elsewhere classified; E44.0 Moderate protein-calorie malnutrition; K65.9 Peritonitis, unspecified; J18.9 Pneumonia, unspecified organism; N18.6 End stage renal disease; D68.9 Coagulation defect, unspecified; R18.8 Other ascites; E87.2 Acidosis; I50.30 Unspecified diastolic (congestive) heart failure; J98.11 Atelectasis; K56.7 Ileus, unspecified; N17.9 Acute kidney failure, unspecified; E11.22 Type 2 diabetes mellitus with diabetic chronic kidney disease; E11.42 Type 2 diabetes mellitus with diabetic polyneuropathy; E11.51 Type 2 diabetes mellitus with diabetic peripheral angiopathy without gangrene; E11.65 Type 2 diabetes mellitus with hyperglycemia; Z99.2 Dependence on renal dialysis; Z89.512 Acquired absence of left leg below knee; Z89.431 Acquired absence of right foot; D47.3 Essential (hemorrhagic) thrombocythemia; E11.649 Type 2 diabetes mellitus with hypoglycemia without coma; E66.01 Morbid (severe) obesity due to excess calories; R65.20 Severe sepsis without septic shock; D50.9 Iron deficiency anemia, unspecified; Z79.82 Long term (current) use of aspirin; Z79.899 Other long term (current) drug therapy; D63.8 Anemia in other chronic diseases classified elsewhere; E03.9 Hypothyroidism, unspecified; G47.33 Obstructive sleep apnea (adult) (pediatric); K76.0 Fatty (change of) liver, not elsewhere classified; K40.20 Bilateral inguinal hernia, without obstruction or gangrene, not specified as recurrent; E87.6 Hypokalemia; K64.8 Other hemorrhoids; K29.70 Gastritis, unspecified, without bleeding; K20.9 Esophagitis, unspecified; M85.9 Disorder of bone density and structure, unspecified; K82.8 Other specified diseases of gallbladder; Z87.891 Personal history of nicotine dependence; I25.10 Atherosclerotic heart disease of native coronary artery without angina pectoris; D12.3 Benign neoplasm of transverse colon
CPT/HCPCS: 36415; 36600; 71045-TC; 74018; 74178; 76700-TC; 80048-TC; 80061-TC; 80076-TC; 80202-TC; 82272-TC; 82728-TC; 82746; 82784; 82962-TC; 83540-TC; 83605-TC; 83735-TC; 84155; 84165; 84484-TC; 85025-TC; 85027-TC; 85385-TC; 85730-TC; 86334; 86704; 86705; 86706; 86803; 86850-TC; 86921-TC; 87040-TC; 87070-TC; 87340; 88305-TC; 88313-TC; 88342; 90935-TC; 93307-TC; A4216; A4606; A4623; A6402; A6403; C1750; C1751; C9113; J0885; J1450; J1644; J1815; J2270; J2405; J2543; J2765; J2916; J3370; J3490; J7030; J7050; J7060; J8597; P9016-BL; P9047; Q0162; Q9967; Z7610

== ENCOUNTER 2017-04-24 13:18 | Outpatient (CLI) | payer MEDICARE, MEDICAID ==
[~2017-04-24 13:18] MED LIST: AMLO10TA2 PO; ASPI-1169 PO; ATOR40TA PO; CALC0.253 PO; CALC667C6 PO; ERGO500014 PO; FOLI1TAB16 PO; JANUMET PO; NIFE60TA69 PO; SEVE800T8 PO; VITA1TAB18 PO
[2017-04-24 13:23] VITALS: BP 91/40
== END 2017-04-24 23:59 | disposition home or self-care (01) ==
LOC: EDBD → MSC 13:18
PROVIDERS: ATTEND Internal Medicine
DX: Z09 Encounter for follow-up examination after completed treatment for conditions other than malignant neoplasm (principal); E11.22 Type 2 diabetes mellitus with diabetic chronic kidney disease; E11.65 Type 2 diabetes mellitus with hyperglycemia; I13.2 Hypertensive heart and chronic kidney disease with heart failure and with stage 5 chronic kidney disease, or end stage renal disease; I50.9 Heart failure, unspecified; N18.6 End stage renal disease; Z99.2 Dependence on renal dialysis; I73.9 Peripheral vascular disease, unspecified; D64.9 Anemia, unspecified; E66.9 Obesity, unspecified; E44.0 Moderate protein-calorie malnutrition; E88.09 Other disorders of plasma-protein metabolism, not elsewhere classified; Z89.512 Acquired absence of left leg below knee

== ENCOUNTER 2017-04-24 18:01 | Inpatient (IN) | payer MEDICARE, MEDICAID ==
[~2017-04-24] VITALS: Ht 162.6 cm; Wt 85.3 kg
--- NOTE | 2017-04-24 18:10 | NUR ---
PT BIB FAMILY TO ER BED 11. HEREN FOR GENERALIZED WEAKNESS AND MALAISE X 2 SDAYS WORST TODAY. PT HAS HX OF ESRD, ON PERITONEAL DIALYSIS. LAST DIALYZED TODAY. 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 GOWNED AND PLACED ON MONITOR. AWAITING MD BOO.
--- NOTE | 2017-04-24 18:16 | NUR ---
DR JEAN-BAPTISTE AT BEDSIDE FOR EVAL.
--- NOTE | 2017-04-24 18:27 | NUR ---
IV LINE STARTED BLOOD DRAWN AND SENT TO LAB.
--- NOTE | 2017-04-24 18:29 | NUR ---
radiology at bedside for chest xray.
[2017-04-24 18:38] LABS: BASOPHILS # (AUTO) 0.3 /CMM (0.0-0.2); BASOPHILS % (AUTO) 1.7 % (0.0-2.0); EOSINOPHILS % (AUTO) 0.1 % (0.0-6.0); HEMATOCRIT 39 % (39-51); HEMOGLOBIN 12.9 g/dL (13.5-17.5); LYMPHOCYTES # (AUTO) 1.4 /CMM (0.8-4.8); LYMPHOCYTES % (AUTO) 8.1 % (20.0-44.0); MEAN CORPUSCULAR HEMOGLOBIN 28 PG (26.0-33.0); MEAN CORPUSCULAR HGB CONC 33 g/dl (31.0-36.0); MEAN CORPUSCULAR VOLUME 86 fL (80-96); MONOCYTES # (AUTO) 0.9 /CMM (0.1-1.30); MONOCYTES % (AUTO) 4.9 % (2.0-12.0); NEUTROPHILS # (AUTO) 15.2 /CMM (1.8-8.9); NEUTROPHILS % (AUTO) 85.2 % (43.0-81.0); PLATELET COUNT (AUTO) 555 /CMM (150-450); RDW COEFFICIENT OF VARIATION 18.1 (11.5-15.0); RED BLOOD CELL COUNT(AUTO) 4.53 MIL/uL (4.5-6.0); WHITE BLOOD COUNT (AUTO) 17.8 K/uL (4.3-11.0)
[2017-04-24 18:48] LABS: INR 1.17 (0.85-1.15)
[2017-04-24] MEDS ORDERED: BENZOIN COMPOUND TINCT 60 ML BOTTLE ONE (18:50)
[2017-04-24 18:52] LABS: TROPONIN I 0.017 ng/mL (0.00-0.056)
[2017-04-24 18:56] LABS: ALBUMIN 2.8 g/dL (3.4-5.0); BILIRUBIN,DIRECT 0.2 mg/dL (0.0-0.2); BILIRUBIN,TOTAL 0.5 mg/dL (0.2-1.0); CALCIUM, SERUM 9.1 mg/dL (8.5-10.1); POTASSIUM 4.4 mmol/L (3.5-5.1); TOTAL PROTEIN, SERUM 8.3 g/dL (6.4-8.2)
[2017-04-24] MEDS ORDERED: IV NS 0.9% 1,000 ML BAG IV ONE (19:00)
[2017-04-24 19:35] LABS: CREATININE 11.4 mg/dL (0.6-1.3)
--- NOTE | 2017-04-24 19:58 | NUR ---
PAGED EPIC FOR PANEL
[2017-04-24] MEDS ORDERED: CEFTRIAXONE 1 G in IV NS 0.9% 50 ML IV SCH (20:30)
[2017-04-24] MEDS ORDERED: CEFTRIAXONE 1GM BAG (ER ONLY) 50 ML IV ONE ×2 (20:30→22:51)
[2017-04-24] MEDS ORDERED: ACETAMINOPHEN 325 MG TABLET PO PRN ×2 (21:00)
[2017-04-24] MEDS ORDERED: MAG HYDROX/AL HYDROX/SIMETH 30 ML UDC PO PRN (21:00)
[2017-04-24] MEDS ORDERED: FUROSEMIDE 40 MG/4 ML VIAL IV ONE (21:00)
[2017-04-24] MEDS ORDERED: HYDROCODONE/APAP 5/325MG 1 EACH TABLET PO PRN (21:00)
[2017-04-24] MEDS ORDERED: ZOLPIDEM TARTRATE 5 MG TABLET PO PRN (21:00)
--- NOTE | 2017-04-24 21:07 | NUR ---
CALLING REPORT TO TELE NURSE. PT IS GOING TO [phone]
--- NOTE | 2017-04-24 22:06 | NUR ---
PT IS STATING THAT HE DID NOT GET PERITONEAL DIALYSIS TODAY BUT HE GOT IT YESTERDAY.
--- NOTE | 2017-04-24 22:10 | NUR ---
REPORT GIVEN TO DAMIEN RUIZ
--- NOTE | 2017-04-24 22:27 | NUR ---
REPORT GIVEN TO DACIA. PT AWAITING TRANSFER TO FLOOR.
[2017-04-24] MEDS ORDERED: VANCOMYCIN 1 GM in IV NS 0.9% 250 ML IV ONE (23:00)
[2017-04-24] MEDS ORDERED: HEPARIN SODIUM, PORCINE 5000 UNITS/1 ML VIAL SQ ONE (23:00)
--- NOTE | 2017-04-24 23:00 | NUR ---
RN NOTES REPORT RECEIVED FROM DISPLAY COORDINATORDAMIEN STONE
--- NOTE | 2017-04-24 23:23 | NUR ---
RN NOTES PATIENT ARRIVED VIA GURNEY. A/O X4, ON ROOM AIR WITH NO S/S OF RESP DISTRESS. CURRENTLY SR ON THE MONITOR, HR 90'S. NO CURRENT COMPLAINTS OF PAIN. 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 PT IS ANURIC. PERITONEAL DIALYSIS ACCESS NOTED. LEFT AC 20G, FLUSHED AND PATENT, NO S/S OF INFILTRATION/INFECTION, DRESSING CDI. BED LOW AND LOCKED, SIDERAILS UP, CALL LIGHT WITHIN REACH. WILL MONITOR
[2017-04-24] MEDS ORDERED: INSULIN LISPRO/ASPART 100 UNIT/ML CARTRIDGE SQ ONE (23:29)
[2017-04-24] MEDS ORDERED: PIPERACILLIN /TAZOBACTAM 2.25 G VIAL IV ONE (23:35)
[2017-04-24] MEDS ORDERED: VANCOMYCIN 1 GM VIAL ONE (23:36)
[2017-04-24] MEDS: PIPERACILLIN /TAZOBACTAM 2.255 G in IV D5W 50 ML IV SCH (23:50)
[2017-04-24 23:56] VITALS: BP 118/40
[2017-04-24] MEDS: ONDANSETRON HCL/PF 4 MG/2 ML VIAL IVP PRN (23:59)
[2017-04-25] MEDS ORDERED: FUROSEMIDE 40 MG/4 ML VIAL IV ONE
[2017-04-25] MEDS: BLOOD SUGAR DIAGNOSTIC 1 EACH STRIP IN SCH ×5 (00:13→20:44)
[2017-04-25] MEDS: DEXTROSE 50%-WATER 50 ML DISP.SYRIN IV PRN ×3 (00:15→16:53)
[2017-04-25 04:00] VITALS: BP 99/33
--- NOTE | 2017-04-25 06:45 | NUR ---
RN CLOSING NOTES CURRENT BLOOD SUGARS 31 AND 32 CONSECUTIVELY. PROTOCOL FOLLOWED, D50 GIVEN, 1 BOX OF ORANGE JUICE GIVEN TOO. PT REMAINS ALERT, ASYMPTOMATIC. SOLE SKIVER AWARE. WILL RECHECK BLOOD SUGAR AND ENDORSE TO DAY RN
--- NOTE | 2017-04-25 07:12 | NUR ---
RN INITIAL NOTES: REC'D PT ASLEEP ON BED, NOT IN ANY DISTRESS, A/O X 4, DENIES ANY PAIN/DISCOMFORT AT THIS TIME. ON ROOM AIR, NO SOB. ON TELEMONITOR, SR W/ HR 87 BPM. HAS L AC G20, SL, FLUSHING WELL, PATENT & INTACT W/ NO S/SX OF INFECTION/INFILTRATION NOTED. HAS PERITONEAL DIALYSIS CATHETER ON THE R ABDOMEN, CLAMPED, SITE CLEAN & DRY. HAS L FOOT AMPUTATION & R TOES AMPUTATION, COVERED W/ CLEAN & DRY DRESSING - AWAITING WOUND CONSULT. PROVIDED COMFORT & SAFETY MEASURES. BED KEPT LOW & IN LOCKED POS. CALL LIGHT PLACED W/IN REACH. WILL CONTINUE TO MONITOR & ATTEND PT NEEDS. Addendum: 04/25/17 at 1554 by JOYCELYN CORNELIUS RN ADDENDUM: BLOOD SUGAR CLOSELY MONITORED. PT IS A/O X 4.
[2017-04-25 07:18] LABS: BASOPHILS # (AUTO) 0.1 /CMM (0.0-0.2); BASOPHILS % (AUTO) 0.5 % (0.0-2.0); EOSINOPHILS % (AUTO) 0.1 % (0.0-6.0); HEMATOCRIT 36 % (39-51); HEMOGLOBIN 11.5 g/dL (13.5-17.5); LYMPHOCYTES # (AUTO) 2.3 /CMM (0.8-4.8); LYMPHOCYTES % (AUTO) 10.4 % (20.0-44.0); MEAN CORPUSCULAR HEMOGLOBIN 28 PG (26.0-33.0); MEAN CORPUSCULAR HGB CONC 32 g/dl (31.0-36.0); MEAN CORPUSCULAR VOLUME 89 fL (80-96); MONOCYTES # (AUTO) 1.2 /CMM (0.1-1.30); MONOCYTES % (AUTO) 5.3 % (2.0-12.0); NEUTROPHILS # (AUTO) 18.3 /CMM (1.8-8.9); NEUTROPHILS % (AUTO) 83.7 % (43.0-81.0); PLATELET COUNT (AUTO) 493 /CMM (150-450); RDW COEFFICIENT OF VARIATION 18.9 (11.5-15.0); RED BLOOD CELL COUNT(AUTO) 4.05 MIL/uL (4.5-6.0); WHITE BLOOD COUNT (AUTO) 21.9 K/uL (4.3-11.0)
[2017-04-25 07:40] LABS: CALCIUM, SERUM 7.9 mg/dL (8.5-10.1)
[2017-04-25 07:45] LABS: CREATININE 11.7 mg/dL (0.6-1.3); PHOSPHORUS 11.2 mg/dL (2.5-4.9)
[2017-04-25 08:00] VITALS: BP 107/45
[2017-04-25] MEDS ORDERED: VANCOMYCIN 500 MG in IV D5W 100 ML IV PRN (08:00)
[2017-04-25] MEDS ORDERED: FEE PK DOSING 1 MIN EA MC ONE (08:08)
[2017-04-25] MEDS: SEVELAMER CARBONATE 800 MG TABLET PO SCH ×4 (08:24→23:30)
[2017-04-25] MEDS: FOLIC ACID 1 MG TABLET PO SCH (08:25)
[2017-04-25] MEDS: CALCITRIOL 0.25 MCG CAPSULE PO SCH (08:25)
[2017-04-25] MEDS: Z GUARD REMEDY 2 OZ OINT TP PRN (08:25)
[2017-04-25] MEDS: CALCIUM ACETATE 667 MG TABLET PO SCH ×3 (08:25→17:36)
[2017-04-25] MEDS: ASPIRIN 81 MG TAB.CHEW PO SCH (08:25)
[2017-04-25] MEDS: VITAMIN B COMP W-C 1 TAB TABLET PO SCH (08:25)
[2017-04-25] MEDS ORDERED: AMLODIPINE BESYLATE 10 MG TABLET PO SCH (09:00)
[2017-04-25] MEDS ORDERED: NIFEdipine XL 60 MG TAB PO SCH (09:00)
[2017-04-25] MEDS: ONDANSETRON HCL/PF 4 MG/2 ML VIAL IVP PRN (09:05)
--- NOTE | 2017-04-25 10:17 | NUR ---
WOUND CARE CONSULT: PT PRESENTS WITH RT FOOT INCISION WITH SUTURES AND DRY WOUND AREA AND LEFT BK STUMP WITH ESCHAR, PRESENT ON ADMISSION. SACRAL DIMPLE NOTED WITH SCARRING. PT IS CONTINENT AT THIS TIME AND ABLE TO ASSIST WITH TURNING AND REPOSITIONING. CURRENT MELODY SCORE IS 15. RECOMMEND SURGICAL CONSULT/FOLLOW UP FOR LOWER EXTREMITIES. ALL SKIN PROTECTION MEASURES IN PLACE AND DISCUSSED WITH NURSING STAFF. PERITONEAL DIALYSIS CATH NOTED TO ABDOMEN. WILL SEE PRN. MONAHAN IN AGREEMENT WITH PLAN OF CARE. Addendum: 04/25/17 at 1019 by RADHA SMITH WNDNU Amended: Links added.
--- NOTE | 2017-04-25 11:12 | NUR ---
PINK ALERT (STK MED ON EMAR) CLEARED FOR PT'S SAFETY, MEDS NON ADMINISTERED.
--- NOTE | 2017-04-25 11:30 | NUR ---
RN NOTES: PT SEEN & EXAMINED BY DR. SALGADO. PER MD, PT MAY BRING HIS OWN PD MACHINE. FRANSISCA BARONE RN SPOKE W/ THE PT RE: PERITONEAL DIALYSIS. PT TO DO IT LATER THIS AFTERNOON/EVENING WHEN HIS IS HERE.
[2017-04-25] MEDS: PIPERACILLIN /TAZOBACTAM 2.255 G in IV D5W 50 ML IV SCH ×2 (11:55→20:39)
[2017-04-25] MEDS: INSULIN ASPART/LISPRO 100 UNIT/ML CARTRIDGE SQ PRN ×2 (11:58→20:42)
[2017-04-25 12:00] VITALS: BP 98/42
--- NOTE | 2017-04-25 13:20 | NUR ---
RN NOTES: PT SEEN & EXAMINED BY DR. BEARD.
--- NOTE | 2017-04-25 15:52 | NUR ---
RN NOTES: PER DR. CHIRAG MOORE TO ORDER STOOL FOR C.DIFF. PT HAD 3X LOOSE BM SINCE THIS AM.
[2017-04-25 16:00] VITALS: BP 92/24
--- NOTE | 2017-04-25 16:45 | NUR ---
RN NOTES: BP 112/21, RECHECKED 92/24, HR 85, BS 30 MG/DL. PT DENIES ANY PAIN/DISCOMFORT. PT SCHEDULED FOR PERITONEAL DIALYSIS AT BEDSIDE. REFERRED TO DR. BEARD W/ ORDERS TO HOLD BP MEDS & GIVE SOME SUGAR. PT & FAMILY MADE AWARE.
[2017-04-25] MEDS: ATORVASTATIN 40 MG TABLET PO SCH (17:36)
--- NOTE | 2017-04-25 18:00 | NUR ---
RN NOTES: PT REFERRED TO DR. BEARD D/T STILL LOW BP 89/28 & THAT PT IS SCHEDULED FOR PD AT 8PM. ORDERED FLUID CHALLENGE 500 CC NS X1.
[2017-04-25] MEDS ORDERED: IV NS 0.9% 500 ML IV ONE (18:30)
--- NOTE | 2017-04-25 19:00 | NUR ---
RN CLOSING NOTES: PT REMAINS ASYMPTOMATIC, DENIES PAIN/DISCOMFORT DESPITE OF EPISODE LOW BS AND HYPOTENSION. PT LATEST BS AT 144 MG/DL AFTER GIVING D50 & JUICE. AFTER FLUID CHALLENGE, BP 98/63. PT TOLERATED ROOM AIR, NO SOB. ON TELEMONITOR, STILL SR. L AC G20, SL, KEPT PATENT & INTACT W/ NO S/SX OF INFECTION/INFILTRATION NOTED. PERITONEAL DIALYSIS CATHETER KEPT IN PLACE, ALREADY CONNECTED HIM TO PD MACHINE, ENDORSED TO PM RN TO START IT AT 8PM PER 'S INSTRUCTION. KEPT WELL RESTED. NEEDS ATTENDED. BED KEPT LOW & IN LOCKED POS. CALL LIGHT PLACED W/IN REACH. ENDORSED TO PM RN FOR VERONICA. PT REMOVED DRESSING ON HIS LEFT FOOT, HE SAID HE DOESN'T WANT IT, CAUSING HIM PAIN.
[2017-04-25 20:00] VITALS: BP 101/35
[2017-04-25] MEDS: NYSTATIN (PYXIS) 500,000 UNIT/5 ML ORAL.SUSP PO SCH (20:39)
[2017-04-25] MEDS: FLUCONAZOLE (100 MG) 100 MG TABLET PO SCH (20:39)
--- NOTE | 2017-04-25 22:00 | NUR ---
COACH - REC'D PT. A&OX 3 W/SON AT BS. PT.HAS POOR APPETITE, BUT CAN TOLERATE CRACKERS & ICE CHIPS. PT.IS ON R/A W/O2 SATS >96%. AFEBRILE. LBKA W/SCATTERED SCABS TO BODY. RT. FOOT IS BANDAGED & HAS ALL TOES AMPUTATED. PT.IS HOOKED UP TO PERITONEAL DIALYSIS MACHINE FROM ABD SITE. PT'S SON TURNED MACHINE ON AT 20:00PM. PT.IS ANURIC. PT'S BS IS #133 & HE REC'D 2 UNITS OF HUMALOG INSULIN/SQ. WILL RECHECK BS IN AM. BS'S HAVE BEEN VERY LABILE. SBP'S ARE IN THE 130'S. NSR/80'S. ALL PULSES PALPABLE/WEAK:LLE + POPLITEAL PULSE. NO PAIN NOTED. CONT.POC.
[2017-04-26] VITALS: BP 93/36
[2017-04-26 04:00] VITALS: BP 108/64
[2017-04-26] MEDS: PIPERACILLIN /TAZOBACTAM 2.255 G in IV D5W 50 ML IV SCH ×3 (04:51→21:25)
[2017-04-26] MEDS: ONDANSETRON HCL/PF 4 MG/2 ML VIAL IVP PRN (05:59)
--- NOTE | 2017-04-26 06:50 | NUR ---
RN CLOSING NOTE - PT. ADM. BEDBATH AT 23:15 PM. PT. STARTED FEELING NAUSEATED & HAD DRY HEAVES AROUND 05:50 AM. PT'S SON CAME BACK AT 04:45 AM. GIVEN STATUS UPDATE. PT. IS STATING NOW AT CHANGE OF SHIFT THAT HE IS HAVING SOME BLURRED VISION. PT. IS ALMOST DONE W/ HIS PERITONEAL DIALYSIS. IT WILL BE SHUT OFF AT 8AM. WILL ENDORSE TO [facility] RN THAT A PERITONEAL FLUID CX NEEDS RETRIEVED (AFTER DIALYSIS). BLOOD SUGAR WAS DONE EARLY AT 06:50. BS = #187. WILL EN - DORSE VERONICA TO LULU QUEZADA. CONT.POC.
--- NOTE | 2017-04-26 07:12 | NUR ---
RN INITIAL NOTES: REC'D PT AWAKE ON BED, NOT IN ANY DISTRESS, A/O X 4. ON ROOM AIR, NO SOB. ON TELEMONITOR, SR. HAS L AC G20, SL, FLUSHING WELL, PATENT & INTACT W/ NO S/SX OF INFECTION/INFILTRATION NOTED. HAS PERITONEAL DIALYSIS CATHETER ON THE R ABDOMEN, W/ ONGOING DIALYSIS (STARTED 8PM LAST NIGHT AND WILL END 8AM LATER), WILL COLLECT PERITONEAL FLUID FOR CULTURE AFTER DIALYSIS. PROVIDED COMFORT & SAFETY MEASURES. BED KEPT LOW & IN LOCKED POS. CALL LIGHT PLACED W/IN REACH. WILL CONTINUE TO MONITOR & ATTEND PT NEEDS.
[2017-04-26 07:26] LABS: BASOPHILS # (AUTO) 0.2 /CMM (0.0-0.2); BASOPHILS % (AUTO) 0.9 % (0.0-2.0); EOSINOPHILS % (AUTO) 0.2 % (0.0-6.0); HEMATOCRIT 35 % (39-51); HEMOGLOBIN 11.6 g/dL (13.5-17.5); LYMPHOCYTES # (AUTO) 1.1 /CMM (0.8-4.8); LYMPHOCYTES % (AUTO) 5.4 % (20.0-44.0); MEAN CORPUSCULAR HEMOGLOBIN 29 PG (26.0-33.0); MEAN CORPUSCULAR HGB CONC 33 g/dl (31.0-36.0); MEAN CORPUSCULAR VOLUME 87 fL (80-96); MONOCYTES # (AUTO) 1.3 /CMM (0.1-1.30); MONOCYTES % (AUTO) 6.3 % (2.0-12.0); NEUTROPHILS # (AUTO) 17.2 /CMM (1.8-8.9); NEUTROPHILS % (AUTO) 87.2 % (43.0-81.0); PLATELET COUNT (AUTO) 447 /CMM (150-450); RDW COEFFICIENT OF VARIATION 18.7 (11.5-15.0); RED BLOOD CELL COUNT(AUTO) 4.03 MIL/uL (4.5-6.0); WHITE BLOOD COUNT (AUTO) 19.7 K/uL (4.3-11.0)
[2017-04-26 07:27] LABS: CALCIUM, SERUM 7.7 mg/dL (8.5-10.1); POTASSIUM 4.3 mmol/L (3.5-5.1)
[2017-04-26 07:28] LABS: CREATININE 11.8 mg/dL (0.6-1.3)
[2017-04-26 08:00] VITALS: BP 101/22
--- NOTE | 2017-04-26 08:30 | NUR ---
RN NOTES: PERITONEAL FLUID COLLECTED C/O AHMED HD RN.
[2017-04-26] MEDS: SEVELAMER CARBONATE 800 MG TABLET PO SCH ×3 (08:45→17:26)
[2017-04-26] MEDS: FLUCONAZOLE (100 MG) 100 MG TABLET PO SCH (08:45)
[2017-04-26] MEDS: ASPIRIN 81 MG TAB.CHEW PO SCH (08:45)
[2017-04-26] MEDS: CALCIUM ACETATE 667 MG TABLET PO SCH ×3 (08:45→17:25)
[2017-04-26] MEDS: CALCITRIOL 0.25 MCG CAPSULE PO SCH (08:45)
[2017-04-26] MEDS: NYSTATIN (PYXIS) 500,000 UNIT/5 ML ORAL.SUSP PO SCH ×3 (08:45→17:25)
[2017-04-26] MEDS: VITAMIN B COMP W-C 1 TAB TABLET PO SCH (08:45)
[2017-04-26] MEDS: FOLIC ACID 1 MG TABLET PO SCH (08:45)
[2017-04-26] MEDS: BLOOD SUGAR DIAGNOSTIC 1 EACH STRIP IN SCH ×4 (08:46→21:25)
[2017-04-26] MEDS: INSULIN ASPART/LISPRO 100 UNIT/ML CARTRIDGE SQ PRN ×4 (08:53→21:25)
[2017-04-26] MEDS: Z GUARD REMEDY 2 OZ OINT TP PRN (08:53)
[2017-04-26 12:00] VITALS: BP 91/23
[2017-04-26 16:00] VITALS: BP_SYST 113; BP_SYST 121; BP_DIAS 57; BP_DIAS 75
[2017-04-26] MEDS: ATORVASTATIN 40 MG TABLET PO SCH (17:25)
--- NOTE | 2017-04-26 19:00 | NUR ---
RN CLOSING NOTES: NO ACUTE CHANGES NOTED W/IN SHIFT. NO SOB WHILE ON ROOM AIR. NO HYPOGLYCEMIA W/IN SHIFT. PT VERBALIZED THAT HE HAS CHRONIC BLURRY VISION AND IS BETTER NOW. ON TELEMONITOR, STILL SR. L AC G20, SL, KEPT PATENT & INTACT W/ NO S/SX OF INFECTION/INFILTRATION NOTED. PERITONEAL DIALYSIS CATHETER KEPT IN PLACE, ALREADY CONNECTED HIM TO PD MACHINE, ENDORSED TO PM RN TO START IT AT 8PM PER 'S INSTRUCTION. SON AT BEDSIDE. KEPT WELL RESTED. NEEDS ATTENDED. BED KEPT LOW & IN LOCKED POS. CALL LIGHT PLACED W/IN REACH. ENDORSED TO PM RN FOR VERONICA. Addendum: 04/26/17 at 1925 by JOYCELYN CORNELIUS RN ADDENDUM: WOUND CX DONE ON PT RIGHT FOOT. SPECIMEN PLACED IN THE REFRIGERATOR.
[2017-04-26 20:00] VITALS: BP 107/38
--- NOTE | 2017-04-26 20:10 | NUR ---
RN NOTES RECEIVED PT AWAKE ON BED WITH FAMILY AT BEDSIDE. STARTED SELF PERITONEAL DIALYSIS AT BEDSIDE CONNECTED BY PER PREVIOUS NURSE INSTRUCTION TO START IT AT 8PM. PT IS AWAKE ALERT ORIENTED X 3 VERBALIZED UNDERSTANDING WELL AWARE ABOUT HIS DIALYSIS. PT IS AFEBRILE. NO ACUTE RESP DISTRESS. SATING 100% IN RA. DENIES PAIN AT THIS TIME. SR HR 80'S ON TELE MONITOR. EDUCATED REGARDING PLAN OF CARE IV SITE ON LAC G 20 INTACT AND PATENT. INFORMED ABOUT UA COLLECTION. OFFLOADED EXT WITH PILLOWS. ENCOURAGED TO MOVE WHILE ON BED FOR SKIN MANAGEMENT. WILL CONTINUE TO MONITOR.
--- NOTE | 2017-04-26 21:26 | NUR ---
RN NOTES PT REFUSED INSULIN BS 152 MG/DL. PT IS AOX 3 ABLE TO MAKE KNOWN NEEDS. RISK AND BENEFITS EXPLAINED . PT IS AWARE. STILL REFUSED FOR MEDS
[2017-04-27] VITALS: BP 137/70
[2017-04-27 04:00] VITALS: BP 114/65
[2017-04-27] MEDS: PIPERACILLIN /TAZOBACTAM 2.255 G in IV D5W 50 ML IV SCH ×3 (06:09→22:18)
--- NOTE | 2017-04-27 06:56 | NUR ---
RN NOTES PT ASLEEP WELL NO SIGNIFICANT CHANGES SHOWN PERITONEAL DIALYSIS FINISH AT THIS TIME BY THE BEDSIDE. REMAINED SR 80'S . DENIES PAIN. REFUSED TO HAVE BED BATH THROUGHOUT THE SHIFT. PER PT HE HAD A BATH YESTERDAY AND MAYBE TODAY IN AM. PT IS AOX4 ALL NEEDS ATTENDED. ALL DUE MEDICINE ADMINISTERED ORDERED. NURSING MEASURES PROVIDED. NO S/S OF HYPO OR HYPERGLYCEMIA. KEPT PT CLEAN AND DRY WILL ENDORSED CONTINUITY OF CARE TO AM NURSE,.
[2017-04-27 06:57] LABS: BASOPHILS % (AUTO) 0.2 % (0.0-2.0); EOSINOPHILS # (AUTO) 0.1 /CMM (0.0-0.7); EOSINOPHILS % (AUTO) 0.5 % (0.0-6.0); HEMATOCRIT 36 % (39-51); HEMOGLOBIN 11.7 g/dL (13.5-17.5); LYMPHOCYTES # (AUTO) 1.3 /CMM (0.8-4.8); LYMPHOCYTES % (AUTO) 5.8 % (20.0-44.0); MEAN CORPUSCULAR HEMOGLOBIN 28 PG (26.0-33.0); MEAN CORPUSCULAR HGB CONC 33 g/dl (31.0-36.0); MEAN CORPUSCULAR VOLUME 86 fL (80-96); MONOCYTES # (AUTO) 1.1 /CMM (0.1-1.30); NEUTROPHILS # (AUTO) 19.1 /CMM (1.8-8.9); NEUTROPHILS % (AUTO) 88.5 % (43.0-81.0); PLATELET COUNT (AUTO) 428 /CMM (150-450); RED BLOOD CELL COUNT(AUTO) 4.12 MIL/uL (4.5-6.0); WHITE BLOOD COUNT (AUTO) 21.6 K/uL (4.3-11.0)
[2017-04-27 07:11] LABS: CALCIUM, SERUM 7.5 mg/dL (8.5-10.1)
[2017-04-27 07:14] LABS: CREATININE 11.4 mg/dL (0.6-1.3)
--- NOTE | 2017-04-27 07:44 | NUR ---
RN NOTE RECEIVED PATIENT AWAKE ALERT AND ORIENTED. HE IS ABLE TO MAKE THINGS KNOWN IN HIS [place] LANGUAGE ([place]), BUT ABLE TO UNDERSTAND AND SPEAK UPPER SORBIAN. BREATHING EVEN UNLABORED, NO SOB OR DISTRESS NOTED. ON CARDIAC MONITORING SINUS RHYTHM HR OF 80. LEFT AC IV SITE INTACT AND PATENT. ACCU CHECK DONE RESULTS OF 141. WILL CONTINUE TO ASSIST ALL NEEDS AND WITH ADLS. BED LOCKED, LOW POSITIONED, PLACED CALL LIGHT WITHIN REACH.
[2017-04-27 08:00] VITALS: BP 143/46
[2017-04-27] MEDS: SEVELAMER CARBONATE 800 MG TABLET PO SCH ×3 (08:12→17:51)
[2017-04-27] MEDS: ASPIRIN 81 MG TAB.CHEW PO SCH (08:12)
[2017-04-27] MEDS: FOLIC ACID 1 MG TABLET PO SCH (08:12)
[2017-04-27] MEDS: VITAMIN B COMP W-C 1 TAB TABLET PO SCH (08:12)
[2017-04-27] MEDS: NYSTATIN (PYXIS) 500,000 UNIT/5 ML ORAL.SUSP PO SCH ×3 (08:12→17:51)
[2017-04-27] MEDS: CALCIUM ACETATE 667 MG TABLET PO SCH ×3 (08:12→17:51)
[2017-04-27] MEDS: FLUCONAZOLE (100 MG) 100 MG TABLET PO SCH (08:12)
[2017-04-27] MEDS: CALCITRIOL 0.25 MCG CAPSULE PO SCH (08:12)
[2017-04-27] MEDS: BLOOD SUGAR DIAGNOSTIC 1 EACH STRIP IN SCH ×4 (08:15→22:18)
[2017-04-27] MEDS: INSULIN ASPART/LISPRO 100 UNIT/ML CARTRIDGE SQ PRN ×3 (08:15→22:26)
[2017-04-27 09:07] LABS: LYMPHOCYTES % (MANUAL) 7 % (16-48); MONOCYTES % (MANUAL) 4 % (0-11.0); NEUTROPHILS % (MANUAL) 89 (42-76)
[2017-04-27 12:00] VITALS: BP 139/39
[2017-04-27 16:00] VITALS: BP 128/48
[2017-04-27] MEDS: ATORVASTATIN 40 MG TABLET PO SCH (17:51)
[2017-04-27] MEDS: LACTOBACILLUS RHAMNOSUS GG 1 EACH CAP.SPRINK PO SCH (17:51)
--- NOTE | 2017-04-27 18:45 | NUR ---
RN CLOSING NOTES: PATIENT IN BED WITH NO ACUTE CHANGES NOTED DURING SHIFT. NO SOB OR DISTRESS NOTED. NO EPISODE OF HYPO/HYPERGLYCEMIA NOTED. ON TOOL MAKER APPRENTICE SINUS RHYTHM HER OF 83. LEFT AC IV SITE INTACT AND PATENT. PATIENT HAD PERITONEAL DIALYSIS CATHETER KEPT IN PLACE, AND HAS CONNECTED PATIENT TO THE PD MACHINE, WILL ENDORSED TO NEXT SHIFT RN. BED LOCK, LOW POSITION, PLACED CALL LIGHT WITHIN REACH.
[2017-04-27 20:00] VITALS: BP 132/51
--- NOTE | 2017-04-27 20:00 | NUR ---
[facility] RN NOTE PT IN BED AWAKE. NO DISTRESS OR DISCOMFORT NOTED. PERIOTNEAL DIALYSIS IN PROGRESS BY PT. DENIES PAIN. ON TELE SR 82. SIDE RAILS UP X 2 AND CALL LIGHT WITHIN REACH. VSS. CONTINUE TO MONITOR HIM.
[2017-04-27] MEDS: ONDANSETRON HCL/PF 4 MG/2 ML VIAL IVP PRN (22:46)
--- NOTE | 2017-04-27 22:46 | NUR ---
[facility] RN NOTE PT C/O NAUSEA, ZOFRAN 4 MG IVP GIVEN. CONTINUE TO MONITOR HIM.
--- NOTE | 2017-04-27 23:15 | NUR ---
[facility] RN NOTE NAUSEA SUBSIDED. PT IN NO DISCOMFORT.
[2017-04-28] VITALS: BP 166/94
[2017-04-28 04:00] VITALS: BP 139/90
[2017-04-28] MEDS: PIPERACILLIN /TAZOBACTAM 2.255 G in IV D5W 50 ML IV SCH ×2 (05:08→12:45)
--- NOTE | 2017-04-28 06:32 | NUR ---
[facility] RN NOTE PT IN BED AWAKE. NO DISTRESS OR DISCOMFORT NOTED. DENIES PAIN. ON TELE SR. SIDE RAILS UP X 3 AND CALL LIGHT WITHIN REACH. VSS. CONTINUE TO MONITOR HIM.
[2017-04-28 07:13] LABS: BASOPHILS # (AUTO) 0.1 /CMM (0.0-0.2); BASOPHILS % (AUTO) 0.3 % (0.0-2.0); EOSINOPHILS # (AUTO) 0.2 /CMM (0.0-0.7); EOSINOPHILS % (AUTO) 0.8 % (0.0-6.0); HEMATOCRIT 37 % (39-51); HEMOGLOBIN 12.3 g/dL (13.5-17.5); LYMPHOCYTES # (AUTO) 1.1 /CMM (0.8-4.8); LYMPHOCYTES % (AUTO) 5.7 % (20.0-44.0); MEAN CORPUSCULAR HEMOGLOBIN 29 PG (26.0-33.0); MEAN CORPUSCULAR HGB CONC 33 g/dl (31.0-36.0); MEAN CORPUSCULAR VOLUME 86 fL (80-96); MONOCYTES # (AUTO) 0.9 /CMM (0.1-1.30); NEUTROPHILS # (AUTO) 16.7 /CMM (1.8-8.9); NEUTROPHILS % (AUTO) 88.2 % (43.0-81.0); PLATELET COUNT (AUTO) 412 /CMM (150-450); RDW COEFFICIENT OF VARIATION 18.8 (11.5-15.0); RED BLOOD CELL COUNT(AUTO) 4.32 MIL/uL (4.5-6.0)
[2017-04-28 07:26] LABS: CALCIUM, SERUM 7.8 mg/dL (8.5-10.1); POTASSIUM 3.7 mmol/L (3.5-5.1)
[2017-04-28 07:38] LABS: CREATININE 11.5 mg/dL (0.6-1.3)
[2017-04-28] MEDS: BLOOD SUGAR DIAGNOSTIC 1 EACH STRIP IN SCH ×2 (07:54→12:14)
[2017-04-28 08:00] VITALS: BP 125/76
--- NOTE | 2017-04-28 08:00 | NUR ---
TD/RN AM SHIFT INITIAL NOTES RECEIVED PT AWAKE SITTING IN BED, PT A/O X 4, COMPLAINT OF CONSTANT HICCUPS, WILL REFER TO PRIMARY MD. BUT DENIES ANY OTHER SYMPTOMS AT THIS TIME. ON ROOM AIR SATURATING @ 97%, LUNG SOUNDS CLEAR. ON TELE WITH SINUS RHYTHM, HR 83. IV SITE FLUSHED, PATENT, SL. AMPUTATION SITE DRESSED, CLEAN & DRY. PT IS COMFORTABLE, SCHEDULED AM MEDS TO BE GIVEN. CL WITHIN REACHED AND SAFETY MAINTAINED. ON GOING MONITORING.
[2017-04-28] MEDS: SEVELAMER CARBONATE 800 MG TABLET PO SCH ×2 (09:18→12:44)
[2017-04-28] MEDS: CALCITRIOL 0.25 MCG CAPSULE PO SCH (09:18)
[2017-04-28] MEDS: NYSTATIN (PYXIS) 500,000 UNIT/5 ML ORAL.SUSP PO SCH ×2 (09:19→12:44)
[2017-04-28] MEDS: ASPIRIN 81 MG TAB.CHEW PO SCH (09:19)
[2017-04-28] MEDS: LACTOBACILLUS RHAMNOSUS GG 1 EACH CAP.SPRINK PO SCH (09:19)
[2017-04-28] MEDS: FLUCONAZOLE (100 MG) 100 MG TABLET PO SCH (09:19)
[2017-04-28] MEDS: CALCIUM ACETATE 667 MG TABLET PO SCH ×2 (09:19→12:44)
[2017-04-28] MEDS: FOLIC ACID 1 MG TABLET PO SCH (09:19)
[2017-04-28] MEDS: VITAMIN B COMP W-C 1 TAB TABLET PO SCH (09:19)
[2017-04-28] MEDS: INSULIN ASPART/LISPRO 100 UNIT/ML CARTRIDGE SQ PRN ×2 (09:22→12:49)
[2017-04-28 09:48] LABS: BILIRUBIN,DIRECT 0.2 mg/dL (0.0-0.2); BILIRUBIN,TOTAL 0.6 mg/dL (0.2-1.0)
[2017-04-28] MEDS ORDERED: IV NS 0.9% 250 ML BAG IV ONE (10:00)
[2017-04-28 12:00] VITALS: BP_SYST 115; BP_DIAS 33; BP_DIAS 36
--- NOTE | 2017-04-28 12:00 | NUR ---
TELE1/RN NOON ROUNDS NO CHANGE OF CONDITION. MONITORING CONTINUED.
[2017-04-28] MEDS ORDERED: LEVO500T75 PO (12:13)
[2017-04-28] MEDS ORDERED: SULF1TAB48 PO (12:13)
--- NOTE | 2017-04-28 12:15 | NUR ---
TELE1/RN ROUNDS - DR. BEARD UPDATED PT'S CONDITION, PT SEEN & EXAMINED BY DR. BEARD, NO NEW ORDERS RECEIVED AT THIS TIME. ON GOING MONITORING.
[2017-04-28] MEDS ORDERED: chlorproMAZINE HCL 25 MG TABLET PO ONE (13:00)
--- NOTE | 2017-04-28 16:00 | NUR ---
TELE1/TRUCK MANAGER - HOME DISCHARGE INSTRUCTIONS GIVEN TO PT AND PT'S , VERBALIZED UNDERSTANDING. DISCHARGE DOCUMENTS GIVEN TO PT. ID BAND REMOVED, IV SITE REMOVED, PRESSURE DRESSING APPLIED, NO S/S OF INFECTION. PT LEFT TELE1 UNIT IN STABLE CONDITION VIA HIS OWN WHEELCHAIR, ACCOMPANIED BY HIS AND SON, TO AN AWAITING PRIVATE CAR.
== END 2017-04-28 16:00 | disposition home or self-care (01) | DRG 871 ==
LOC: ER 18:02 → EDBD 18:02 → TELE 21:40 → TELE-TD 22:17 → TELE1 04-28 11:08
PROVIDERS: ADMIT Internal Medicine; ATTEND Internal Medicine
PROC: 5A1D70Z Performance of Urinary Filtration, Intermittent, Less than 6 Hours Per Day (ICD-10-PCS; principal; 2017-04-25)
PROC: 5A1D70Z Performance of Urinary Filtration, Intermittent, Less than 6 Hours Per Day (ICD-10-PCS; 2017-04-26)
PROC: 5A1D70Z Performance of Urinary Filtration, Intermittent, Less than 6 Hours Per Day (ICD-10-PCS; 2017-04-27)
PROC: 5A1D70Z Performance of Urinary Filtration, Intermittent, Less than 6 Hours Per Day (ICD-10-PCS; 2017-04-28)
DX: A41.9 Sepsis, unspecified organism (principal); I50.31 Acute diastolic (congestive) heart failure; I13.2 Hypertensive heart and chronic kidney disease with heart failure and with stage 5 chronic kidney disease, or end stage renal disease; K65.9 Peritonitis, unspecified; E87.2 Acidosis; E11.42 Type 2 diabetes mellitus with diabetic polyneuropathy; E11.22 Type 2 diabetes mellitus with diabetic chronic kidney disease; N18.6 End stage renal disease; B37.9 Candidiasis, unspecified; Z99.2 Dependence on renal dialysis; D63.8 Anemia in other chronic diseases classified elsewhere; B96.89 Other specified bacterial agents as the cause of diseases classified elsewhere; Z89.421 Acquired absence of other right toe(s); Z79.82 Long term (current) use of aspirin; Z79.899 Other long term (current) drug therapy; E11.51 Type 2 diabetes mellitus with diabetic peripheral angiopathy without gangrene; E11.649 Type 2 diabetes mellitus with hypoglycemia without coma; E78.5 Hyperlipidemia, unspecified; E66.9 Obesity, unspecified; E83.39 Other disorders of phosphorus metabolism; E86.9 Volume depletion, unspecified; I70.0 Atherosclerosis of aorta; Z79.4 Long term (current) use of insulin; Z89.512 Acquired absence of left leg below knee
CPT/HCPCS: 36415; 71045-TC; 74018; 80048-TC; 80076-TC; 80202-TC; 82247-TC; 82248-TC; 82962-TC; 83605-TC; 83735-TC; 83880; 84100-TC; 84484-TC; 85025-TC; 85730-TC; 87040-TC; 87070-TC; 87081-TC; 90935-TC; A4216; A4606; A6402; A6403; J0696; J1644; J1815; J1940; J2405; J2543; J3370; J7030; J7040; J7050; J7060; Q0161; Z7610

== ENCOUNTER 2017-08-18 17:20 | Inpatient (IN) | payer MEDICARE, OTHER ==
[~2017-08-18] VITALS: Ht 132.1 cm; Wt 74.4 kg
[~2017-08-18 17:20] MED LIST changes: +LEVO500T75 PO; +SULF1TAB48 PO
--- NOTE | 2017-08-18 17:25 | NUR ---
PT BIBRA FROM HOME TO ER BED 12 C/O N/V X 4 DAYS NOW. PT DENIES PAIN. GOWNED AND PLACED ON MONITOR. AWAITING MD BOO.
--- NOTE | 2017-08-18 17:32 | NUR ---
DR GUERRERO AT BEDSIDE FOR EVAL.
--- NOTE | 2017-08-18 17:45 | NUR ---
RADIOLOGY AT BEDSIDE FOR CHEST XRAY.
[2017-08-18 17:46] LABS: EOSINOPHILS % (AUTO) 0.1 % (0.0-6.0); HEMOGLOBIN 11.3 g/dL (13.5-17.5); RDW COEFFICIENT OF VARIATION 18.7 (11.5-15.0)
[2017-08-18 17:48] LABS: BASOPHILS # (AUTO) 1.3 /CMM (0.0-0.2); BASOPHILS % (AUTO) 4.8 % (0.0-2.0); HEMATOCRIT 35 % (39-51); LYMPHOCYTES # (AUTO) 1.3 /CMM (0.8-4.8); LYMPHOCYTES % (AUTO) 4.9 % (20.0-44.0); MEAN CORPUSCULAR HEMOGLOBIN 29 PG (26.0-33.0); MEAN CORPUSCULAR HGB CONC 33 g/dl (31.0-36.0); MEAN CORPUSCULAR VOLUME 89 fL (80-96); MONOCYTES # (AUTO) 0.8 /CMM (0.1-1.30); NEUTROPHILS # (AUTO) 23.9 /CMM (1.8-8.9); NEUTROPHILS % (AUTO) 87.2 % (43.0-81.0); PLATELET COUNT (AUTO) 640 /CMM (150-450); RED BLOOD CELL COUNT(AUTO) 3.93 MIL/uL (4.5-6.0); WHITE BLOOD COUNT (AUTO) 27.3 K/uL (4.3-11.0)
[2017-08-18] MEDS ORDERED: HYDR-552 PO (17:54)
[2017-08-18] MEDS ORDERED: MIDO5TAB PO (17:54)
[2017-08-18] MEDS ORDERED: ONDANSETRON HCL/PF 4 MG/2 ML VIAL IVP ONE (18:00)
[2017-08-18] MEDS ORDERED: IV NS 0.9% 500 ML BAG IV ONE (18:00)
[2017-08-18 18:03] LABS: ALANINE AMINOTRANSFERASE 7 U/L (12-78); ALBUMIN 2.3 g/dL (3.4-5.0); ALKALINE PHOSPHATASE 144 U/L (46-116); ASPARTATE AMINOTRANSFERASE 14 U/L (15-37); BILIRUBIN,DIRECT 0.1 mg/dL (0.0-0.2); BILIRUBIN,TOTAL 0.4 mg/dL (0.2-1.0); CARBON DIOXIDE 13 mmol/L (21-32); CHLORIDE 87 mmol/L (98-107); GLUCOSE 100 mg/dL (74-106); LIPASE 83 U/L (73-393); SODIUM SERUM 131 mmol/L (136-145); TOTAL PROTEIN, SERUM 8.1 g/dL (6.4-8.2); UREA NITROGEN, BLOOD 44 mg/dL (7-18)
[2017-08-18 18:04] LABS: TROPONIN I < 0.017 ng/mL (0.00-0.056)
--- NOTE | 2017-08-18 18:06 | NUR ---
CREATINE 11
[2017-08-18] MEDS ORDERED: ONDANSETRON HCL/PF 4 MG/2 ML VIAL ONE (18:08)
[2017-08-18 18:16] LABS: INR 1.32 (0.85-1.15)
--- NOTE | 2017-08-18 18:43 | NUR ---
[facility] PAGED, BETH QUESADA C D STRIPPER
--- NOTE | 2017-08-18 18:48 | NUR ---
CALLED NURSING SUP. FOR MS BED
--- NOTE | 2017-08-18 19:03 | NUR ---
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
--- NOTE | 2017-08-18 19:21 | NUR ---
[facility] REPAGED
--- NOTE | 2017-08-18 19:42 | NUR ---
MS 307-2 FOR CHRONIC RENAL FAILURE AND FEELING SICK, ADMITTING
[2017-08-18] MEDS ORDERED: PIPERACILLIN /TAZOBACTAM 3.375 G VIAL IV ONE (19:52)
[2017-08-18] MEDS ORDERED: VANCOMYCIN 1 GM in IV D5W 250 ML IV ONE (20:00)
[2017-08-18] MEDS ORDERED: PIPERACILLIN /TAZOBACTAM 3.375 G in IV D5W 50 ML IV ONE (20:00)
--- NOTE | 2017-08-18 20:08 | NUR ---
REPORT GIVEN TO TAYLOR QUEZADA FOR VERONICA
[2017-08-18] MEDS ORDERED: VANCOMYCIN 1 GM VIAL ONE (20:11)
[2017-08-18 20:22] VITALS: BP 115/73
--- NOTE | 2017-08-18 20:22 | NUR ---
MANAGER FLIGHT OPERATIONS NEW ADMISSION NOTES RECEIVED PT FROM ER VIA GURNEY TO ROOM 307-2, A & O X 3, IVORIAN/SAMI SPEAKING, FAMILY @ BEDSIDE. NO SOB, NO ACUTE CHANGES, MILD C/O PAIN TO RIGHT THIGH VERBALIZED BUT REFUSED TO TAKE ANY PAIN MED @ THIS TIME, PAIN IS TOLERABLE, PER PT. VSS, VERBALIZED WEAKNESS. PERITONEAL DIALYSIS TUBING PRESENT ON RIGHT SIDE OF ABD. BODY CHECK DONE, PHOTOS TAKEN, PLACED IN THE CHART. ALL NEEDS MET. ON TELE MONITORING WITH SINUS TACHYCARDIA 98.. IV ACCESS TO LAC, SL, INTACT PATENT. ALL BELONGINGS ACCOUNTED FOR & LIST SIGNED BY THE FAMILY MEMBER. PT HAD JENNIFER CATARACT SX, PER PT, HE HAS POOR VISION. JENNIFER BKA SX IN THE PAST. SUTURES STILL PRESENT TO RIGHT KNEE. DRESSING DONE. WILL F/U WITH MD FOR ADMITTING ORDERS. CALL LIGHT WITHIN REACH. BED IN LOW LOCKED POSITION. WILL CONTINUE TO MONITOR ACCORDINGLY.
[2017-08-18 20:30] VITALS: BP 115/73
--- NOTE | 2017-08-18 21:15 | NUR ---
MD NOTIFIED PT'S LACTIC ACID IS TRENDING DOWN TO 17.8, CREATININE IS 11. MD MADE AWARE WITH NO NEW ORDERS @ THIS TIME.
[2017-08-18] MEDS ORDERED: HYDROCODONE/APAP 5/325MG 1 EACH TABLET PO PRN (22:30)
[2017-08-18] MEDS ORDERED: MORPHINE SULFATE INJ 2 MG/ML DISP.SYRIN IV PRN (23:00)
[2017-08-18] MEDS ORDERED: TEMAZEPAM 7.5 MG CAPSULE PO PRN (23:00)
[2017-08-18] MEDS ORDERED: ACETAMINOPHEN 325 MG TABLET PO PRN (23:00)
[2017-08-18] MEDS: ONDANSETRON HCL/PF 4 MG/2 ML VIAL IVP PRN (23:20)
--- NOTE | 2017-08-18 23:20 | NUR ---
PRN ZOFRAN GIVEN PT VOMITED X 1, NAUSEA PRESENT, PRN ZOFRAN GIVEN ORDERED. WILL REASSESS FOR EFFECTIVENESS. FAMILY @ BED SIDE.
--- NOTE | 2017-08-19 01:10 | NUR ---
PT SEEN BY MD DR JIMENEZ SAW THE PT WITH NO NEW ORDERS. PT DOES PERITONEAL DIALYSIS @ HOME BY HIMSELF & WANTS TO DO IT @ SO @ 4AM. MD MADE AWARE & AGREED TO PT'S PLAN OF CARE. WILL MONITOR CLOSELY.
[2017-08-19 02:10] VITALS: BP 99/74
--- NOTE | 2017-08-19 02:40 | NUR ---
PRN NORCO GIVEN PT C/O RIGHT THIGH PAIN 08/15, S/P BKA 1 WEEK AGO. HE PREFERRED TO TAKE NORCO @ THIS TIME SINCE HE HAS BEEN TAKING IT @ HOME (PER PATIENT ). PRN NORCO GIVEN. WILL REASSESS FOR EFFECTIVENESS. NO C/O VOMITING NOTED SO FAR.
[2017-08-19] MEDS: ONDANSETRON HCL/PF 4 MG/2 ML VIAL IVP PRN ×3 (03:45→17:40)
--- NOTE | 2017-08-19 03:45 | NUR ---
PRN ZOFRAN GIVEN PT VOMITED X 1, NAUSEA PRESENT, PRN ZOFRAN GIVEN ORDERED. WILL REASSESS FOR EFFECTIVENESS. FAMILY @ BED SIDE.
[2017-08-19] MEDS ORDERED: PIPERACILLIN /TAZOBACTAM 2.25 G VIAL IV ONE (05:02)
[2017-08-19] MEDS: PIPERACILLIN /TAZOBACTAM 2.25 G in IV D5W 50 ML IV SCH ×3 (05:24→21:19)
[2017-08-19 06:04] VITALS: BP 118/43
--- NOTE | 2017-08-19 06:40 | NUR ---
SUPERVISOR CYTOGENETIC LABORATORY CLOSING NOTES PT SLEPT INTERMITTENTLY @ NIGHT, A & O X 3, UKRAINIAN/BAHRAINI SPEAKING, FAMILY @ BEDSIDE. NO SOB, NO ACUTE CHANGES. NO C/O PAIN @ THIS TIME. VERBALIZED WEAKNESS. PERITONEAL DIALYSIS TUBING PRESENT ON RIGHT SIDE OF ABD. ALL NEEDS MET. ON TELE MONITORING WITH SINUS TACHYCARDIA 98. IV ACCESS TO LAC, SL, INTACT PATENT. PT HAS POOR VISION, HAD JENNIFER CATARACT SX'S. JENNIFER BKA SX IN THE PAST. SUTURES STILL PRESENT TO RIGHT KNEE. HELPED THE PT WITH PERITONEAL DIALYSIS. UNABLE TO TELL THE OUTPUT. PT FEELS NAUSEATED @ TIMES. CALL LIGHT WITHIN REACH. BED IN LOW LOCKED POSITION. WILL ENDORSE TO AM RN FOR CONTINUITY OF CARE.
[2017-08-19 06:42] LABS: BASOPHILS # (AUTO) 0.1 /CMM (0.0-0.2); BASOPHILS % (AUTO) 0.3 % (0.0-2.0); HEMATOCRIT 35 % (39-51); HEMOGLOBIN 11.3 g/dL (13.5-17.5); LYMPHOCYTES # (AUTO) 1.5 /CMM (0.8-4.8); LYMPHOCYTES % (AUTO) 5.4 % (20.0-44.0); MEAN CORPUSCULAR HEMOGLOBIN 29 PG (26.0-33.0); MEAN CORPUSCULAR HGB CONC 33 g/dl (31.0-36.0); MEAN CORPUSCULAR VOLUME 90 fL (80-96); MONOCYTES # (AUTO) 1.5 /CMM (0.1-1.30); MONOCYTES % (AUTO) 5.1 % (2.0-12.0); NEUTROPHILS # (AUTO) 25.4 /CMM (1.8-8.9); NEUTROPHILS % (AUTO) 89.2 % (43.0-81.0); PLATELET COUNT (AUTO) 683 /CMM (150-450); RDW COEFFICIENT OF VARIATION 18.4 (11.5-15.0); RED BLOOD CELL COUNT(AUTO) 3.86 MIL/uL (4.5-6.0); WHITE BLOOD COUNT (AUTO) 28.5 K/uL (4.3-11.0)
[2017-08-19 07:14] LABS: TROPONIN I 0.027 ng/mL (0.00-0.056)
[2017-08-19 07:15] LABS: ALBUMIN 2.2 g/dL (3.4-5.0); BILIRUBIN,TOTAL 0.4 mg/dL (0.2-1.0); CALCIUM, SERUM 9.3 mg/dL (8.5-10.1); POTASSIUM 5.1 mmol/L (3.5-5.1); TOTAL PROTEIN, SERUM 7.7 g/dL (6.4-8.2)
--- NOTE | 2017-08-19 07:20 | NUR ---
RN OPENING NOTES RECEIVED PT. PT IS STABLE AND RESTING IN BED, BEDSIDE. A/OX3, PT IS PRIMARILY ERITREAN SPEAKING HOWEVER IS ABLE TO SPEAK SOME CYPRIOT. NO C/O PAIN, NO S/S OF RESP DISTRESS. PT HAS C/O N/V, WILL ADDRESS PHARMACOLOGICALLY. PER MANAGER STATISTICAL PROGRAMMING REPORT, PT RECEIVES PERITONEAL DIALYSIS, CONDUCTED BY AT BEDSIDE, APPROVED BY DR. JIMENEZ. SAFETY MEASURES IN PLACE, CALL LIGHT WITHIN REACH. WILL CONTINUE TO MONITOR.
[2017-08-19 07:22] LABS: CREATININE 10.4 mg/dL (0.6-1.3)
[2017-08-19 07:32] LABS: THYROID STIMULATING HORMONE 6.403 uIU/mL (0.358-3.74)
[2017-08-19 07:55] LABS: PHOSPHORUS 10.6 mg/dL (2.5-4.9)
[2017-08-19 08:00] VITALS: BP 86/66
[2017-08-19] MEDS: PANTOPRAZOLE 40 MG TABLET.DR PO SCH (08:06)
[2017-08-19] MEDS: ASPIRIN 81 MG TAB.CHEW PO SCH (08:14)
[2017-08-19] MEDS: FOLIC ACID 1 MG TABLET PO SCH (08:14)
[2017-08-19] MEDS: CALCITRIOL 0.25 MCG CAPSULE PO SCH (08:14)
[2017-08-19] MEDS: CALCIUM ACETATE 667 MG TABLET PO SCH ×3 (08:30→17:02)
[2017-08-19] MEDS ORDERED: FEE PK DOSING 1 MIN EA MC ONE (08:31)
--- NOTE | 2017-08-19 09:54 | NUR ---
RN NOTES AM PO MEDS NOT GIVEN. PT EXPERIENCING NAUSEA, EPISODES OF VOMITING X 4. PRN ZOFRAN GIVEN, VOMITING RESOLVED, HOWEVER NAUSEA REMAINS. WILL CONTINUE TO MONITOR.
[2017-08-19] MEDS: MIDODRINE HCL (5MG) 5 MG TABLET PO SCH ×2 (13:31→21:20)
[2017-08-19 16:00] VITALS: BP 129/97
--- NOTE | 2017-08-19 17:12 | NUR ---
Patient primary language is Welsh.Spoke with patient,stated he lives locally with his & family. He had previous left BKA and recent right BKA. He requires max assist with adl's. He has a wheelchair to use for mobility. He is on home peritoneal dialysis everyday. Family are involved and supportive with plan of care. He plan to return home once discharge. Addendum: 08/19/17 at 1712 by RACHEL JUSTICE RN Amended: Links added.
--- NOTE | 2017-08-19 18:00 | NUR ---
RN NOTES PT EXPERIENCED ABSENCE SEIZURE LASTING APPROXIMATELY 7 SECONDS. EPISODE OF CONFUSION FOLLOWING SEIZURE, LASTING SEVERAL MINUTES. VSS, BLOOD SUGAR WNL, RR AND O2 SAT WNL. MD NOTIFIED, STAT HEAD CT AND NEURO CONSULT ORDERED. WILL CONTINUE TO MONITOR.
--- NOTE | 2017-08-19 18:53 | NUR ---
RN CLOSING NOTES PT TO BE TAKEN DOWN TO RADIOLOGY FOR STAT HEAD CT. ATIVAN 2MG PO PRN ONE TIME ORDERED AWAITING VERIFICATION FROM PHARMACOLOGY. ONCE ATIVAN IS GIVEN, WILL BE TAKEN DOWN FOR STAT HEAD CT. PT POSSIBLE TRANSFER TO OTHER UNITS. ENDORSED TO CARTON WRAPPER FOR VERONICA.
[2017-08-19] MEDS ORDERED: LORAZEPAM 1 MG TABLET PO PRN (19:00)
--- NOTE | 2017-08-19 19:25 | NUR ---
MS RN OPENING NOTES PT IN BED WIT T FAMILY IN ROOM . PT ON ROOM AIR WITH NO S/S RESPIRATORY DISTRESS AT THIS TIME. CALLED TO PHARMACY TO VERIFY ATIVAN. PT HAS TO TAKEN TO CT. SAFETY MEASURES IN PLACE, CALL LIGHT WITHIN REACH. WILL CONTINUE TO MONITOR.
[2017-08-19 20:00] VITALS: BP 91/33
--- NOTE | 2017-08-19 20:19 | NUR ---
ROMANA VERIFIED AND GIVEN .
--- NOTE | 2017-08-19 20:35 | NUR ---
PT LEFT FOR HEAD CT
--- NOTE | 2017-08-19 20:50 | NUR ---
PT CAME BACK TO UNIT. VS ARE STABLE. NO DISTRESS NOTED.
[2017-08-19] MEDS: ATORVASTATIN 10 MG TABLET PO SCH (21:20)
[2017-08-19 23:00] VITALS: BP 124/71
[2017-08-20] VITALS (114 sets, daily range): BP systolic 42–154; BP diastolic 16–124
--- NOTE | 2017-08-20 00:15 | NUR ---
CALLED TO DR JIMENEZ DUE TO PT CONDITION ; BP 79/47 O2 82-84 %. DR JIMENEZ ORDERS : CHEST X-CRISTAL , IV BOLUS NS 0.9 250 ML/HR
--- NOTE | 2017-08-20 00:28 | NUR ---
RAPID RESPONDS CALLED. PT VERBALLY RESPONSIVE, AWAKE. ABG STAT DONE .
--- NOTE | 2017-08-20 00:48 | NUR ---
DR JIMENEZ CAME . CXR DONE PT VERBALLY RESPONSIVE , AWAKE . SATURATION 87%
--- NOTE | 2017-08-20 00:57 | NUR ---
PT TRANSFERRED TO ICU. PT AWAKE, VERBALLY RESPONSIVE.REPORT GIVEN TO ICU NURSE ED.
[2017-08-20] MEDS ORDERED: IV NS 0.9% 1,000 ML BAG IV ONE (01:00)
[2017-08-20 01:13] LABS: CHLORIDE 85 mmol/L (98-107); GLUCOSE 136 mg/dL (74-106); POTASSIUM 5.5 mmol/L (3.5-5.1); SODIUM SERUM 132 mmol/L (136-145); UREA NITROGEN, BLOOD 62 mg/dL (7-18)
[2017-08-20 01:16] LABS: CARBON DIOXIDE 6 mmol/L (21-32)
[2017-08-20 01:26] LABS: ABG BASE EXCESS -27.8 mmol/L; ABG OXYGEN SATURATION 98.9 % (92.0-98.5); ABG PCO2 15.5 mmHg (35.0-45.0); ABG PH 6.925 (7.350-7.450); COHb 0.3 % (0.5-1.5); O2Hb 97.6 % (94.0-97.0); PEEP,BG 5 cm H2O; SITE, ABG Left Radial; VENT MODE, BG BIPAP
[2017-08-20] MEDS ORDERED: PROPOFOL 100 ML ONE (01:31)
[2017-08-20 01:34] LABS: BASOPHILS % (AUTO) 0.5 % (0.0-2.0); EOSINOPHILS % (AUTO) 0.1 % (0.0-6.0); HEMATOCRIT 37 % (39-51); HEMOGLOBIN 10.3 g/dL (13.5-17.5); LYMPHOCYTES # (AUTO) 2.7 /CMM (0.8-4.8); LYMPHOCYTES % (AUTO) 5.9 % (20.0-44.0); MEAN CORPUSCULAR HEMOGLOBIN 28 PG (26.0-33.0); MEAN CORPUSCULAR HGB CONC 28 g/dl (31.0-36.0); MEAN CORPUSCULAR VOLUME 101 fL (80-96); MONOCYTES % (AUTO) 4.5 % (2.0-12.0); NEUTROPHILS # (AUTO) 40.8 /CMM (1.8-8.9); PLATELET COUNT (AUTO) 812 /CMM (150-450); RDW COEFFICIENT OF VARIATION 20.3 (11.5-15.0); RED BLOOD CELL COUNT(AUTO) 3.65 MIL/uL (4.5-6.0)
[2017-08-20 01:35] LABS: BASOPHILS # (AUTO) 0.2 /CMM (0.0-0.2); MONOCYTES # (AUTO) 2.1 /CMM (0.1-1.30)
--- NOTE | 2017-08-20 01:35 | NUR ---
PATIENT WAS INTUBATED WITH 8.0 ET TUBE SECURED AT 25 CM AT THE LIP. PATIENT TOLERATED CURRENT VENT SETTINGS. ALARMS ON AND AUDIBLE.AMBUBAG AT BEDSIDE .WILL CONTINUE TO MONITOR. Addendum: 08/20/17 at 0511 by JOSELITO JEAN-BAPTISTE RT Amended: Links added.
[2017-08-20 01:36] LABS: WHITE BLOOD COUNT (AUTO) 45.9 K/uL (4.3-11.0)
[2017-08-20] MEDS ORDERED: PHENYLEPHRINE 10 MG/ML VIAL ONE (01:36)
[2017-08-20] MEDS: PHENYLEPHRINE 80 MG in IV D5W 250 ML IV PRN ×5 (01:45→23:20)
[2017-08-20] MEDS: PROPOFOL 100 ML IV PRN ×4 (01:45→20:29)
[2017-08-20 02:15] LABS: BAND % (MANUAL) 5 % (0.0-5.0); LYMPHOCYTES % (MANUAL) 7 % (16-48); MONOCYTES % (MANUAL) 7 % (0-11.0); NEUTROPHILS % (MANUAL) 81 (42-76)
[2017-08-20] MEDS ORDERED: NOREPINEPHRINE 4 MG/4 ML AMPUL IV ONE (02:51)
[2017-08-20] MEDS: NOREPINEPHRINE 16 MG in IV D5W 500 ML IV PRN ×2 (02:58→19:04)
[2017-08-20 03:00] LABS: ABG OXYGEN SATURATION 99.1 % (92.0-98.5); ABG PCO2 18.6 mmHg (35.0-45.0); ABG PH 6.933 (7.350-7.450); ABG PO2 487.8 mmHg (75.0-100.0); AaDO2 206.6 mmHg; COHb 0.3 % (0.5-1.5); O2Hb 97.8 % (94.0-97.0); PEEP,BG 5 cm H2O; SITE, ABG Right Brachial; VT, ABG 500 mL
[2017-08-20] MEDS ORDERED: VASOPRESSIN INJ 20 UNIT/ML VIAL ONE (03:21)
[2017-08-20] MEDS ORDERED: VASOPRESSIN INJ 50 UNIT in IV D5W 497.5 ML IV PRN (03:30)
[2017-08-20] MEDS ORDERED: SODIUM BICARBONATE SYR 50 MEQ/50 ML DISP.SYRIN IV ONE ×2 (03:30→10:00)
--- NOTE | 2017-08-20 04:00 | NUR ---
KEY ENTRY OPERATOR PT WAS TRANSFERRED FROM [facility] AFTER [place]EE OF ESTATE WITH DIAGNOSIS SEPTIC SHOCK, RESPIRATORY FAILURE, WHICH HAPPENED DURING PERITONEAL DIALYSIS & WAS NOT COMPLETED. M-D NOTIFIED BY 3 [place] STAFF. ON ADMISSION PT IS CONFUSED, AGITATED, DOES NOT FOLLOW COMMANDS. BILATERAL BKA. STAT ABG DONE & PT WAS PLACED ON BIPAP. D-R TONY IS AT THE BEDSIDE. AFTER EVALUATION OF ABG RESULTS/ SEVERE METABOLIC ACIDOSIS/ HE ORDERED STAT INTUBATION. DOCTOR MITUL FROM ER INTUBATED PT AFTER PROPOFOL 10 ML BOLUS IV GIVEN. PT WAS PLACED ON VENTILATOR AC MODE. PT GOT SOME CRITICAL LAB RESULTS- LACTIC ACID-21.3, WBC-46, CO2-6, CREATININE 11. SODIUM BICARB 50 MEQ IVP GIVEN PER MD ORDER. PT IS SEPTIC, BLOOD PRESSURE LOW. STARTED PHENYLEPHRINE, THEN LEVOPHED & FINALLY VASOPRESSIN DRIPS TITRATED TO KEEP SBP>90 PER MD ORDER PT ACUITY 1:1. ALSO CODE STATUS CHANGED FROM FULL TO DNR. PT IS HARD STICK & AT THE PRESENT TIME HAS ONLY PERIPHERAL IV'S ACCESS. PT NEED PICC LINE INSERTION TUSHAR. CONSENT WAS SIGNED. TOTALLY ANURIC. REMAINS SEDATED WITH PROPOFOL DRIP. FAMILY & PT ARE VIETNAMESE SPEAKING ONLY.
--- NOTE | 2017-08-20 04:33 | NUR ---
PLACED PATIENT ON BIPAP PER MD ORDER. ALARMS ON AND AUDIBLE .ABG DONE . Addendum: 08/20/17 at 0436 by OJSELITO JEAN-BAPTISTE RT Amended: Links added.
[2017-08-20] MEDS: PIPERACILLIN /TAZOBACTAM 2.25 G in IV D5W 50 ML IV SCH ×3 (04:48→21:03)
[2017-08-20] MEDS: MIDODRINE HCL (5MG) 5 MG TABLET PO SCH ×3 (04:52→21:03)
--- NOTE | 2017-08-20 08:30 | NUR ---
DR ROLAND UNDATED ON LABD AND CONDITION. NEW ORDERS OBTAINED. PT MEDICATED FOR TEMP, COOLING MEASURES, CULTURES SENT. WILL TITRATE PRESSORS PER PROTOCOL.
[2017-08-20] MEDS ORDERED: ACETAMINOPHEN 650 MG/20.3 ML UDC GT PRN (09:00)
[2017-08-20 09:02] LABS: HEMATOCRIT 35 % (39-51); HEMOGLOBIN 10.3 g/dL (13.5-17.5); LYMPHOCYTES % (AUTO) 4.5 % (20.0-44.0); MEAN CORPUSCULAR HEMOGLOBIN 29 PG (26.0-33.0); MEAN CORPUSCULAR HGB CONC 30 g/dl (31.0-36.0); MEAN CORPUSCULAR VOLUME 98 fL (80-96); MONOCYTES % (AUTO) 5.1 % (2.0-12.0); PLATELET COUNT (AUTO) 790 /CMM (150-450); RED BLOOD CELL COUNT(AUTO) 3.59 MIL/uL (4.5-6.0)
[2017-08-20 09:03] LABS: BASOPHILS % (AUTO) 0.4 % (0.0-2.0)
[2017-08-20 09:05] LABS: WHITE BLOOD COUNT (AUTO) 49.7 K/uL (4.3-11.0)
[2017-08-20] MEDS: CALCITRIOL 0.25 MCG CAPSULE PO SCH (09:06)
[2017-08-20] MEDS: ACETAMINOPHEN 650 MG/20.3 ML UDC GT PRN ×2 (09:07→19:43)
[2017-08-20] MEDS: FOLIC ACID 1 MG TABLET PO SCH (09:07)
[2017-08-20] MEDS: ASPIRIN 81 MG TAB.CHEW PO SCH (09:07)
[2017-08-20] MEDS: PANTOPRAZOLE 40 MG TABLET.DR PO SCH (09:07)
[2017-08-20 09:08] LABS: CALCIUM, SERUM 8.8 mg/dL (8.5-10.1); POTASSIUM 5.3 mmol/L (3.5-5.1)
[2017-08-20 09:29] LABS: CREATININE 10.6 mg/dL (0.6-1.3)
[2017-08-20] MEDS: CALCIUM ACETATE 667 MG TABLET PO SCH ×3 (09:33→19:05)
[2017-08-20 09:41] LABS: BAND % (MANUAL) 3 % (0.0-5.0); LYMPHOCYTES % (MANUAL) 3 % (16-48); MONOCYTES % (MANUAL) 4 % (0-11.0); NEUTROPHILS % (MANUAL) 90 (42-76)
[2017-08-20] MEDS ORDERED: Sodium Bicarbonate 150 MEQ in IV D5W 1,000 ML IV ONE (10:00)
--- NOTE | 2017-08-20 10:30 | NUR ---
ONE UMP BICARB IV GIVEN ORDERED, VENT SETTINGS ADJUSTED BY RT. ABG COMPLETED REPORTED TO DR GEE.
[2017-08-20 11:20] LABS: ABG BASE EXCESS -17.8 mmol/L; ABG OXYGEN SATURATION 99.2 % (92.0-98.5); ABG PCO2 18.9 mmHg (35.0-45.0); ABG PH 7.229 (7.350-7.450); ABG PO2 383.8 mmHg (75.0-100.0); AaDO2 166.8 mmHg; COHb 0.3 % (0.5-1.5); MetHb 0.9 % (0.0-1.5); PEEP,BG 5 cm H2O; SITE, ABG Right Femoral; VT, ABG 500 mL
[2017-08-20 12:00] LABS: IRON, SERUM 50 ug/dl (50-175); TOTAL IRON BINDING CAPACITY 137 ug/dl (250-450)
[2017-08-20] MEDS ORDERED: DEXTROSE 50%-WATER 50 ML DISP.SYRIN IV PRN (12:00)
--- NOTE | 2017-08-20 12:00 | NUR ---
DR ROLAND UNDATED ON PT HYST OF DM. SS MILD COVERAGE ORDERED.
[2017-08-20] MEDS: BLOOD SUGAR DIAGNOSTIC 1 EACH STRIP IN SCH ×3 (12:35→23:38)
[2017-08-20] MEDS: FLUCONAZOLE IN NS,PREMIX 100 MG in PREMIX 1 EA IV SCH ×2 (12:38)
[2017-08-20] MEDS: PANTOPRAZOLE 40 MG VIAL IV SCH (12:42)
[2017-08-20] MEDS: INSULIN REGULAR, HUMAN 100 UNIT/ML 3 ML VIAL SQ PRN ×3 (12:44→23:38)
--- NOTE | 2017-08-20 13:00 | NUR ---
Shine KNIGHT HERE TO SEE PT. AT THIS PT IS NOT STABLE TO GO TO CT ABD.
--- NOTE | 2017-08-20 13:15 | NUR ---
ETT ADJUSTED FROM 26 CM LIP LINE TO 24.[address] PETE ONEIL. (PULLED BACK 1.5 CM ) VENT CHANGES DONE BY DR. FREEMAN Addendum: 08/21/17 at 1635 by AIME CARRERA RT Amended: Links added.
[2017-08-20] MEDS ORDERED: MORPHINE SULFATE INJ 4 MG/ML DISP.SYRIN IV PRN (14:00)
[2017-08-20] MEDS ORDERED: POLYETHYLENE GLYCOL 3350 17 GM POWD.PACK PO SCH (14:00)
[2017-08-20] MEDS ORDERED: VANCOMYCIN 500 MG in IV NS 0.9% 100 ML IV PRN (16:00)
[2017-08-20] MEDS ORDERED: DOCUSATE SODIUM 100 MG CAPSULE PO SCH (17:00)
--- NOTE | 2017-08-20 17:00 | NUR ---
DR BURK CALLED TO FOLLOW UP ON CT RESULTS. AT THIS TIME THE CT IS MOT COMPLETED. WILL BE INFORMING DR BURK ON CT RESULTS IF DR FREEMAN WILL OK CT NOW. DR FREEMAN UPDATED ON PT CONDITIONS. ORDER OK TO GO TO CT ON CURRENT VENT SETTING PLACED IN [facility]. FAMILY UPDATED ON CT DIAGNOSTIC VALUE TO R/O ISCHEMIC BOWEL. DID GIVE HER CONSENT FOR ct, BUT ALSO STATED THAT SHE WANTS TO MAKE PT. FULL CODE. CHARGE NURSE SCOTT NOTIFIED NEW CODE STATUS ENTERED INTO [facility].
--- NOTE | 2017-08-20 17:15 | NUR ---
RT END OF SHIFT NOTE: PT. 51 Y OLD MALE REMAIN ORALLY INTUBATED ETT # 8.0 @ 24.5 CM SECURED AT THE LIPLINE. (ORIGINALLY FOUND AT 26CM ) @1315 X2 RT'S AT THE BEDSIDE ADJUSTED ETT AT 24.5 CM, PT. MECHANICALLY VENT. WITH NOTED SETTINGS, LALRMS ARE SET AND FUNCTIONAL. X2 ABG'S DONE PER DR. FREEMAN ORDER AND VENT CHANGES DONE AT THE BEDSIDE BY DR. FREEMAN. NO DISTRESS NOTED T/O SHIFT. EQUAL CHEST RISE NOTED, BILATERALLY DIM.RALES NOTED, SUX'D FOR MINIMAL AMT YELLOWISH SECRETIONS. PT. NON RESPONSIVE AND REMAIN STABLE. HME CHANGED, VENT PLUGGED INTO RED OUT LET, AND CONTINUE FOR MONITOR AND REPORT WILL BE PASS TO PM SHIFT. AMBU BAG REMAIN AT THE BEDSIDE. Addendum: 08/21/17 at 1635 by AIME CARRERA RT Amended: Links added.
[2017-08-20] MEDS ORDERED: IOHEXOL-300 100 ML VIAL IV ONE (17:22)
--- NOTE | 2017-08-20 17:53 | NUR ---
DIRECTOR OF RESEARCH CENTER- DR. FREEMAN CALLED UNIT. PER , ORDER STAT ABGS NOW (FOLLOW UP FROM AM ABGS). JAKE RN AND AIME RT MADE AWRE.
--- NOTE | 2017-08-20 18:00 | NUR ---
PT IS BACK FROM CT. TOLERATED CT WELL. [facility]. CONTACTED TO FOLLOW UP ON STAT RESULT.
[2017-08-20 18:15] LABS: ABG BASE EXCESS -16.4 mmol/L; ABG OXYGEN SATURATION 98.4 % (92.0-98.5); ABG PCO2 17.3 mmHg (35.0-45.0); ABG PH 7.292 (7.350-7.450); ABG PO2 201.1 mmHg (75.0-100.0); AaDO2 171.8 mmHg; COHb 0.2 % (0.5-1.5); MetHb 1.1 % (0.0-1.5); O2Hb 97.1 % (94.0-97.0); PEEP,BG 0 cm H2O; SITE, ABG Right Femoral; VT, ABG 500 mL
--- NOTE | 2017-08-20 18:30 | NUR ---
DR BURK UPDATED ON NEG CT RESULT. PERITONEAL FLUID FOR CULTURE W GR. ST WILL BE SENT.
--- NOTE | 2017-08-20 19:00 | NUR ---
PERITONEAL DIALYSIS INITIATED BY DISCUSSED WITH DR GARCIA.
--- NOTE | 2017-08-20 19:30 | NUR ---
RN INITIAL NOTES RECEIVED THE PATIENT SEDATED ON BED WITH DIPRIVAN @ 30MCG/KG/MIN. INTUBATED AND ON VENT WITH SETTINGS AC 24, TV 500, FIO2 50%, PEEP 0, ETT 8/25, SATURATING WELL, NO S/S OF RESP DISTRESS. CURRENTLY SINUS TACH ON THE MONITOR, HR 120'S. ON NEOSYNEPHRINE @ 300MCG/MIN AND LEVO @ 6MCG/MIN, WILL MONITOR BP CLOSELY. OGT IS CLAMPED. PT IS ANURIC. CURRENTLY UNDERGOING PERITONEAL DIALYSIS. LEFT AC AND RIGHT WRIST PERIPHERAL IV'S INTACT. RIGHT UPPER ARM PICC WITH NABICARB+D5W @ 75MLS/HR, NO S/S OF INFECTION/INFILTRATION, DRESSING CDI. BED LOW AND LOCKED, SIDERAILS UP, BED ALARM ON. WILL MONITOR
--- NOTE | 2017-08-20 20:10 | NUR ---
RN NOTES EXPLAINED THE UNIT'S VISITING POLICY TO PATIENT'S SON KARIME. KARIME WILL ONLY STAY TONIGHT DUE TO PATIENT UNDERGOING PERITONEAL DIALYSIS UNTIL TOMORROW 4AM. KARIME VERBALIZED UNDERSTANDING OF VISITING POLICY
--- NOTE | 2017-08-20 20:26 | NUR ---
RN NOTES DR. SMITH IN ROOM TO ASSESS THE PATIENT
[2017-08-20] MEDS: ATORVASTATIN 10 MG TABLET PO SCH (21:03)
[2017-08-20] MEDS ORDERED: VANCOMYCIN 1 GM VIAL ONE (23:57)
[2017-08-21] VITALS (62 sets, daily range): BP systolic 88–128; BP diastolic 35–78
[2017-08-21] MEDS: PROPOFOL 100 ML IV PRN (02:03)
[2017-08-21] MEDS: PHENYLEPHRINE 80 MG in IV D5W 250 ML IV PRN ×3 (04:05→17:38)
[2017-08-21] MEDS: PIPERACILLIN /TAZOBACTAM 2.25 G in IV D5W 50 ML IV SCH ×3 (05:13→21:21)
[2017-08-21] MEDS: BLOOD SUGAR DIAGNOSTIC 1 EACH STRIP IN SCH ×3 (05:13→17:35)
[2017-08-21] MEDS: MIDODRINE HCL (5MG) 5 MG TABLET PO SCH ×3 (05:14→21:42)
[2017-08-21] MEDS: INSULIN REGULAR, HUMAN 100 UNIT/ML 3 ML VIAL SQ PRN ×2 (05:15→12:09)
[2017-08-21 05:35] LABS: BASOPHILS # (AUTO) 0.1 /CMM (0.0-0.2); BASOPHILS % (AUTO) 0.1 % (0.0-2.0); HEMATOCRIT 29 % (39-51); HEMOGLOBIN 8.7 g/dL (13.5-17.5); MEAN CORPUSCULAR HEMOGLOBIN 28 PG (26.0-33.0); MEAN CORPUSCULAR HGB CONC 305 g/dl (31.0-36.0); MEAN CORPUSCULAR VOLUME 92 fL (80-96); MONOCYTES # (AUTO) 2.5 /CMM (0.1-1.30); MONOCYTES % (AUTO) 4.8 % (2.0-12.0); NEUTROPHILS # (AUTO) 47.5 /CMM (1.8-8.9); NEUTROPHILS % (AUTO) 93.1 % (43.0-81.0); PLATELET COUNT (AUTO) 485 /CMM (150-450); RDW COEFFICIENT OF VARIATION 20.5 (11.5-15.0); RED BLOOD CELL COUNT(AUTO) 3.11 MIL/uL (4.5-6.0); WHITE BLOOD COUNT (AUTO) 51.1 K/uL (4.3-11.0)
[2017-08-21 05:45] LABS: ALBUMIN 1.6 g/dL (3.4-5.0); BILIRUBIN,TOTAL 0.5 mg/dL (0.2-1.0); CALCIUM, SERUM 7.7 mg/dL (8.5-10.1); MAGNESIUM 1.7 mg/dL (1.8-2.4); PHOSPHORUS 7.6 mg/dL (2.5-4.9); POTASSIUM 3.8 mmol/L (3.5-5.1); TOTAL PROTEIN, SERUM 5.8 g/dL (6.4-8.2)
[2017-08-21 05:48] LABS: CREATININE 9.4 mg/dL (0.6-1.3)
--- NOTE | 2017-08-21 06:20 | NUR ---
RN CLOSING NOTES PT REMAINS STABLE OF THE MOMENT. 918MLS OUTPUT FROM THE PERITONEAL DIALYSIS. DANIELITO DRIP IS @ 200MCG/MIN. ALL DUE MEDS GIVEN, AM CARE PROVIDED. WILL ENDORSE VERONICA TO AM RN
--- NOTE | 2017-08-21 07:27 | NUR ---
PT REC'D ORALLY INTUBATED VIA 8.0 ETT @24CM AT THE LIP. VENT SETTINGS PER MD ORDERS. PT IS CURRENTLY SEDATED. NO RESP. DISTRESS NOTED. NO GAG NOTED WHEN SX PT. MINIMAL YELLOW SECRETIONS SX. VENT ALARMS CHECKED AND AUDIBLE PER POLICY. VENT PLUGGED INTO RED OUTLET. AMBU-BAG AT HOB. Addendum: 08/21/17 at 0730 by LATASHA ROSS RT Amended: Links added.
[2017-08-21] MEDS: PANTOPRAZOLE 40 MG VIAL IV SCH (07:55)
[2017-08-21] MEDS: CALCIUM ACETATE 667 MG TABLET PO SCH ×3 (08:00→17:21)
[2017-08-21] MEDS: ASPIRIN 81 MG TAB.CHEW PO SCH (08:17)
[2017-08-21] MEDS: FOLIC ACID 1 MG TABLET PO SCH (08:37)
[2017-08-21] MEDS: CALCITRIOL 0.25 MCG CAPSULE PO SCH (08:37)
[2017-08-21 08:39] LABS: ABG BASE EXCESS -10.7 mmol/L; ABG OXYGEN SATURATION 97.4 % (92.0-98.5); ABG PCO2 24.1 mmHg (35.0-45.0); ABG PH 7.356 (7.350-7.450); ABG PO2 126.6 mmHg (75.0-100.0); AaDO2 130.9 mmHg; COHb 0.3 % (0.5-1.5); MetHb 0.7 % (0.0-1.5); O2Hb 96.4 % (94.0-97.0); PEEP,BG 0 cm H2O; SITE, ABG Right Radial; VT, ABG 500 mL
--- NOTE | 2017-08-21 08:50 | NUR ---
WOUND CARE CONSULT: PT PRESENTS WITH BILATERAL MIDDLE FINGER DRY NECROTIC TISSUE AND BILATERAL BK STUMP ESCHARS, PRESENT ON ADMISSION. PT ALSO NOTED TO HAVE DEEP TISSUE INJURY (INTACT) TO SACRUM, PRESENT ON ADMISSION. PT ON THEODORA ISOFLEX LOW AIRLOSS BED. ALL SKIN PROTECTION AND WOUND CARE RECOMMENDATIONS DISCUSSED WITH NURSING STAFF. RECOMMEND SURGICAL CONSULT FOR FINGERS AND SURGICAL FOLLOW UP FOR BK STUMP ESCHARS. WILL SEE PRN. MONAHAN IN AGREEMENT WITH PLAN OF CARE. CURRENT MELODY SCORE IS 11. Addendum: 08/21/17 at 0852 by RADHA SMITH WNDNU Amended: Links added.
[2017-08-21] MEDS ORDERED: Z GUARD REMEDY 2 OZ OINT TP PRN (09:00)
--- NOTE | 2017-08-21 09:30 | NUR ---
ICU/RN: Dr Carmona at bedside for Neuro consult, per MD, consult was requested for seizures. No seizures witnessed by RN nor reported by noc RN. Informed MD, gag/cough reflex -, pupils dilated 5mm, no reaction to light. Off sedation since 0800. Per Dr Carmona, "I'll talk to the primary, he may need a head CT."
[2017-08-21] MEDS: Z GUARD REMEDY 2 OZ OINT TP SCH (09:51)
[2017-08-21 10:34] LABS: BAND % (MANUAL) 12 % (0.0-5.0); LYMPHOCYTES % (MANUAL) 4 % (16-48); MONOCYTES % (MANUAL) 14 % (0-11.0); NEUTROPHILS % (MANUAL) 70 (42-76)
--- NOTE | 2017-08-21 10:45 | NUR ---
ICU/RN: Dr Tirado at bedside; updated on pt status, labs, imaging results dw MD. Per MD continue to keep strict NPO. Currently on Neosynephrine. Informed of neuro status, per MD, pupil reaction very sluggish; change in neuro status maybe due to metabolic function. Case and possible need for HD discussed by MD with family. In agreement with plan. Will cont to monitor pt.
[2017-08-21] MEDS: FLUCONAZOLE IN NS,PREMIX 100 MG in PREMIX 1 EA IV SCH ×2 (11:16)
--- NOTE | 2017-08-21 15:50 | NUR ---
ICU/RN: Dr Taylor updated on pt status; pt obtunded, - gag, cough reflex, pupils fixed and dilated. hitch technician informed Dr Taylor preliminary EEG consistent with lack of cortical activity
--- NOTE | 2017-08-21 17:50 | NUR ---
ICU/RN: Dr Lewis at bedside; updated on pt status. Case dw family. New orders noted and carried out.
--- NOTE | 2017-08-21 18:20 | NUR ---
ICU/RN: SWATI Ruano at bedside; updated on pt status. Informed of corrected micro report - no growth found in blood cx; prelim EEG results, ct abd results. BLUEPRINTING MACHINE OPERATOR spoke with family regarding POC.
--- NOTE | 2017-08-21 20:14 | NUR ---
RECEIVED PT INTUBATED 8.0 ETT SECURED AT 24CM AT THE LIP. PT TOLERATING VENT SETTINGS. SX'D FOR SML AMT OF YELLOW SECRETIONS. VENT ALARMS SET AND AUDIBLE. AMBU BAG AT BEDSIDE. VENT PLUGGED INTO RED OUTLET. WILL CONTINUE TO MONITOR. Addendum: 08/21/17 at 2016 by MARC SIGALA RT Amended: Links added.
[2017-08-21 20:28] LABS: OCCULT BLOOD STOOL POSITIVE (NEGATIVE)
--- NOTE | 2017-08-21 21:00 | NUR ---
SURVIVAL EQUIPMENT REPAIRER - REC'D PT. IN COMATOSE STATE. PUPILS ARE 6/FIXED BILAT.,HOWEVER, RT.PUPIL SEEMS ALITTLE UNSYMMETRICAL. NO GAG WHEN SX'D, NO CORNEAL REFLEXES TO OU. WITH DEEP NAILBED STIMULUS, THERE IS NO REACTION AT ALL BILAT. PT. IS BBKA. S/P RT. STUMP W/SUTURES IS CDI. LEFT STUMP IS OLDER. PT'S FAMILY IS AT BS. THEY ARE ASKING RESULTS OF EEG. RN & STAFF STATED TO PT. THAT MD'S WILL BE IN, COME MORNING. THE NURSES CANNOT GIVE OUT SUCH INFORMATION. PT'S STARTED PERITONEAL DIALYSIS AT 20:15 PM. NEURO CHECKS ARE Q2 HRS. PT. IS ALSO ON NEOSYNEPHRINE GTT. AT 210 MCG - MIN. TITRATING SLOWLY IF SBP'S ALLOW. AC-24,TV-500 & 40%. PT. IS "NOT" OVER-RIDING VENT. OGT/CLAMPED W/60CC RESIDUALS PULLED FOR 8PM CHECK. DARK GREEN GASTRIC CONTENTS NOTED. ANURIC. COOLING BLANKET ON. RECT.VDWW=607.3. ALL IV'S ARE CDI & ALL PORTS ARE PATENT TO FLUSH. PT.IS "DNR" STATUS. CONT.POC.
[2017-08-21] MEDS: ATORVASTATIN 10 MG TABLET PO SCH (21:42)
[2017-08-22] VITALS (101 sets, daily range): BP systolic 41–133; BP diastolic 19–76
[2017-08-22] MEDS: PHENYLEPHRINE 80 MG in IV D5W 250 ML IV PRN ×5 (00:25→20:13)
[2017-08-22] MEDS: INSULIN REGULAR, HUMAN 100 UNIT/ML 3 ML VIAL SQ PRN ×2 (00:26→06:15)
[2017-08-22] MEDS: BLOOD SUGAR DIAGNOSTIC 1 EACH STRIP IN SCH ×4 (00:36→17:51)
[2017-08-22 05:10] LABS: BASOPHILS % (AUTO) 0.1 % (0.0-2.0); EOSINOPHILS % (AUTO) 0.2 % (0.0-6.0); HEMATOCRIT 27 % (39-51); HEMOGLOBIN 8.5 g/dL (13.5-17.5); LYMPHOCYTES % (AUTO) 2.7 % (20.0-44.0); MEAN CORPUSCULAR HEMOGLOBIN 29 PG (26.0-33.0); MEAN CORPUSCULAR VOLUME 89 fL (80-96); MONOCYTES % (AUTO) 2.8 % (2.0-12.0); NEUTROPHILS % (AUTO) 94.2 % (43.0-81.0); PLATELET COUNT (AUTO) 351 /CMM (150-450); RDW COEFFICIENT OF VARIATION 19.5 (11.5-15.0); RED BLOOD CELL COUNT(AUTO) 2.99 MIL/uL (4.5-6.0)
[2017-08-22 05:12] LABS: MEAN CORPUSCULAR HGB CONC 32 g/dl (31.0-36.0)
[2017-08-22 05:15] LABS: CALCIUM, SERUM 7.4 mg/dL (8.5-10.1); MAGNESIUM 1.5 mg/dL (1.8-2.4); PHOSPHORUS 6.7 mg/dL (2.5-4.9); POTASSIUM 3.1 mmol/L (3.5-5.1)
[2017-08-22 05:19] LABS: CREATININE 8.6 mg/dL (0.6-1.3)
[2017-08-22 05:53] LABS: BAND % (MANUAL) 10 % (0.0-5.0); LYMPHOCYTES % (MANUAL) 3 % (16-48); NEUTROPHILS % (MANUAL) 84 (42-76)
[2017-08-22 05:54] LABS: MONOCYTES % (MANUAL) 3 % (0-11.0)
[2017-08-22] MEDS: PIPERACILLIN /TAZOBACTAM 2.25 G in IV D5W 50 ML IV SCH ×2 (06:12→12:14)
[2017-08-22] MEDS: MIDODRINE HCL (5MG) 5 MG TABLET PO SCH ×2 (06:20→12:45)
--- NOTE | 2017-08-22 06:50 | NUR ---
WOOD AND WOOD [employer]ODUCTS LABOURER - NO CHANGES FROM PREVIOUS ASSESS. DANIELITO GTT. HAS BEEN TITRATED UP & DOWN DUE TO LABILE B/P'S. PT'S LEFT FOR PT'S BEDBATH AT 04:30 AM. STATED THAT SHE WILL BE BACK TO STOP PER.DX. CONT.POC. REPORT ENDORSED TO AMERICA JOHANSEN RN.
--- NOTE | 2017-08-22 07:05 | NUR ---
RN INITIAL NOTES RECEIVED PT INTUBATED, ON VENT. NO RESPIRATORY DISTRESS. NO SOB NOTED. NO SIGNS OF PAIN NOTED. PT NOTED WITH FIXED, DILATED PUPILS. NO GAG O COUGH REFLEX NOTED. MIKAYLA PICC IN PLACE. ON DANIELITO AT 250MCG/MIN. WILL MONITOR BP. OG IN PLACE, CLAMPED. BILATERAL STUMP ELEVATED WITH PILLOWS. PT DNR. SON AT BEDSIDE. WILL MONITOR.
[2017-08-22] MEDS: CALCIUM ACETATE 667 MG TABLET PO SCH ×3 (08:00→17:51)
[2017-08-22] MEDS: Z GUARD REMEDY 2 OZ OINT TP SCH (08:19)
[2017-08-22] MEDS: PANTOPRAZOLE 40 MG VIAL IV SCH (08:19)
[2017-08-22] MEDS: ASPIRIN 81 MG TAB.CHEW PO SCH (08:58)
[2017-08-22] MEDS: CALCITRIOL 0.25 MCG CAPSULE PO SCH (08:58)
[2017-08-22] MEDS: FOLIC ACID 1 MG TABLET PO SCH (08:58)
--- NOTE | 2017-08-22 09:00 | NUR ---
RN NOTES SEEN AND EXAMINED BY DR ARREOLA. PT REMAINS INTUBATED, ON VENT. PT EYES FIXED AND DILATED. NO GAG AND COUGH REFLEX NOTED. PT ON DANIELITO AT 290MCG/MIN. SBP MONITORED. MD DISCUSSED EEG RESULT TO AND SON. MD DISCUSSED PLAN OF CARE. WILL CONTINUE TO MONITOR.
--- NOTE | 2017-08-22 09:20 | NUR ---
RN NOTES SEEN AND EXAMINED BY DR TORRES. MD DISCUSSED EEG RESULT, NO BRAIN ACTIVITY, TO SON AND AND BEDSIDE. FOR POSSIBLE APNEA TEST. WILL MONITOR
[2017-08-22] MEDS: ERGOCALCIFEROL (VITAMIN D 2) 50,000 UNIT CAPSULE PO SCH ×2 (10:00→10:08)
--- NOTE | 2017-08-22 10:02 | NUR ---
ICU/RN [facility] NOTIFIED ABOUT PATIENT CONDITION.CASE #[id number] FRANKLYN.WAITING FOR APNEA TEST ,ABG RESULT AND PRIMARY MD CONCLUSIONS.
[2017-08-22 10:41] LABS: ABG BASE EXCESS -12.1 mmol/L; ABG OXYGEN SATURATION 61.7 % (92.0-98.5); ABG PCO2 31.2 mmHg (35.0-45.0); ABG PH 7.263 (7.350-7.450); AaDO2 208.3 mmHg; COHb 0.3 % (0.5-1.5); MetHb 0.7 % (0.0-1.5); O2Hb 61.1 % (94.0-97.0); PEEP,BG 0 cm H2O; SITE, ABG Right Radial; VENT MODE, BG AC 24 500
[2017-08-22] MEDS: FLUCONAZOLE IN NS,PREMIX 100 MG in PREMIX 1 EA IV SCH ×2 (11:12)
[2017-08-22 12:29] LABS: ABG BASE EXCESS -10.4 mmol/L; ABG OXYGEN SATURATION 93.7 % (92.0-98.5); ABG PCO2 22.1 mmHg (35.0-45.0); ABG PH 7.389 (7.350-7.450); ABG PO2 78.7 mmHg (75.0-100.0); AaDO2 181.1 mmHg; COHb 0.3 % (0.5-1.5); MetHb 0.7 % (0.0-1.5); O2Hb 92.8 % (94.0-97.0); PEEP,BG 0 cm H2O; SITE, ABG A-Line; VENT MODE, BG AC 30 500 +0
[2017-08-22 12:48] LABS: ABG BASE EXCESS -11.9 mmol/L; ABG PCO2 47.3 mmHg (35.0-45.0); ABG PH 7.155 (7.350-7.450); ABG PO2 87.5 mmHg (75.0-100.0); AaDO2 578.2 mmHg; COHb 0.3 % (0.5-1.5); MetHb 0.6 % (0.0-1.5); O2Hb 91.2 % (94.0-97.0); SITE, ABG A-Line; VENT MODE, BG 15L NC (APNEA TEST)
--- NOTE | 2017-08-22 14:49 | NUR ---
RN NOTES 1040 CALLED SHAHAB BEAVERS REGARDING ABG RESULT. PT INTUBATED, ON VENT WITH FF SETTINGS: AC24, TV 500, FI02 40%, PEEP 0. NO RESPIRATORY DISTRESS NOTED. AWAITING FOR CALL BACK. 1200 SHAHAB BEAVERS CALLED BACK AND ORDERED INCREASE RATE TO 30 AND ABG IN 15MINS. FAMILY AT BEDSIDE AWARE. WILL CONTINUE TO MONITOR. 1230SHAHAB BEAVERS DNP IN THE UNIT. AWARE OF LAB VALUES: WBC 33, HGB 8.5, HCT 27, PLATELET 351. SODIUM 127. POTASSIUM 3.1, BUN 61, CREA 8.6. PT ON PERITONEAL DIALYSIS. SHAHAB EXPLAINED PT'S CONDITION TO FAMILY AT BEDSIDE. EXPLAINED APNEA TEST. FAMILY VERBALIZED UNDERSTANDING. 1235 APNEA TEST STARTED. WILL CLOSELY MONITOR PT. 1243 APNEA TEST DONE. NO RESPIRATORY EFFORT NOTED. BLOOD GAS DRAWN. AWAITING FOR RESULT. 1240 SHAHAB BEAVERS DNP IN THE ROOM. EXPLAINED TO THE FAMILY THAT PT POSITIVE ON APNEA TEST. CONFIRMED NO BRAIN ACTIVITY. 1400 CALLED SHAHAB BEAVERS DNP TO CLARIFY IF HE WANTS TO REPLACE POTASSIUM AND MAGNESIUM. ALSO MADE AWARE THAT PT'S SBP IS ON 60S. PER SHAHAB, NO REPLACEMENT. START ARTERIAL LINE FOR MORE ACCURATE BP AND MAY START LEVOPHED FOR PROCUREMENT PURPOSES. KEEP MAP>65. FRANKLYN FROM [facility] CAME. ALL PERTINENT INFORMATION GIVEN. WILL REVIEW PT'S CASE. SHAHAB BEAVERS DNP NOTIFIED. WILL MONITOR.
--- NOTE | 2017-08-22 15:00 | NUR ---
ICU/RN RETIREMENT MANAGER FROM [facility] REVIEW THE CHART.PT IS NOT A CANDIDATE FOR [employer].
[2017-08-22] MEDS: NOREPINEPHRINE 16 MG in IV D5W 500 ML IV PRN (15:09)
[2017-08-22] MEDS ORDERED: NOREPINEPHRINE 16 MG in IV D5W 500 ML IV PRN (15:30)
[2017-08-22] MEDS ORDERED: IV NS 0.9% 250 ML IV ONE (16:18)
[2017-08-22] MEDS ORDERED: CT SWABBABLE VALVE TRANS SET 1 EA INFUS.SET MC ONE (16:18)
[2017-08-22] MEDS ORDERED: IOHEXOL-350 100 ML VIAL IV ONE (16:18)
--- NOTE | 2017-08-22 16:30 | NUR ---
RN NOTES 1615 PT LEFT FOR CTA BRAIN. PT INTUBATED, AMBUBAGGING PT. MIKAYLA PICC IN PLACE. DANIELITO AND LEVO DRIP INFUSING. WILL CLOSELY MONITOR BP 1630 PT BACK FROM PROCEDURE. PLACED COMFORTABLY BACK TO ROOM. WILL NOTIFY MD FOR RESULT
[2017-08-22 17:59] LABS: BILIRUBIN,DIRECT 0.3 mg/dL (0.0-0.2); BILIRUBIN,TOTAL 0.6 mg/dL (0.2-1.0); TOTAL PROTEIN, SERUM 5.4 g/dL (6.4-8.2)
--- NOTE | 2017-08-22 18:00 | NUR ---
ICU/RN SHAHAB BEAVERS TALK TO THE FAMILY.PT PRONOUNCED BRAIN .WE WILL KEEP PT ON 2 PRESSORS ONLY TILL ALL FAMILY WILL ATTEND TO SEE THE PATIENT. FOR NEXT 72 HRS,TILL Monday08/25/17.PT IS DNR CODE STATUS.
--- NOTE | 2017-08-22 18:10 | NUR ---
RN NOTES 1800 SHAHAB BEAVERS DNP IN THE UNIT. DISCUSSED CTA BRAIN AND APNEA TEST RESULT. PT PRONOUNCED AT 1800. WILL GIVE PT'S FAMILY REASONABLE TIME. WILL KEEP PT ON 2 PRESSORS X 72HRS.
[2017-08-22 18:51] LABS: ALBUMIN 1.4 g/dL (3.4-5.0)
--- NOTE | 2017-08-22 19:00 | NUR ---
RN CLOSING NOTES PT REMAINS INTUBATED, ON VENT. REMAINS ON LEVO AND DANIELITO. BP CLOSELY MONITORED. FAMILY AT BEDSIDE. KEPT COMFORTABLE. WILL ENDORSE FOR CONTINUITY OF CARE
--- NOTE | 2017-08-22 20:00 | NUR ---
RN NOTES RECEIVED PT WITH FAMILY AT BEDSIDE. PT HAS ETT 8.0, 25 CM @ LIP CONNECTED TO VENT SETTING AC 30 TV 500 FIO2 40% ZERO PEEP , NO RESPONSE TO STIMULI. EYES FIXED AND DILATED MD AWARE AND ALREADY SPOKE TO FAMILY PER PREVIOUS NURSE, TELE MONITOR REVEALS ST OGT CLAMPED, IV SITE ON LAC G18 AND MIKAYLA PICC TLC WITH DANIELITO @ MAX 300 MCG/MIN AND LEVO @ 1 MCG/MIN TITRATED ORDER, ALL LINE INTACT AND PATENT. KEPT PT CLEAN AND DRY WILL CONTINUE TO MONITOR.
--- NOTE | 2017-08-22 22:30 | NUR ---
RN NOTES BEDBATH DONE SON AT BEDSIDE. PRESENT WITH 1 LARGE BOWEL, KEPT PT CLEAN AND DRY.
[2017-08-23] VITALS (33 sets, daily range): BP systolic 88–125; BP diastolic 41–55
[2017-08-23] MEDS: PHENYLEPHRINE 80 MG in IV D5W 250 ML IV PRN ×3 (01:22→09:28)
--- NOTE | 2017-08-23 04:30 | NUR ---
RN NOTES CXR DONE AT BEDSIDE.
[2017-08-23 07:50] LABS: ABG BASE EXCESS -12.7 mmol/L; ABG OXYGEN SATURATION 97.8 % (92.0-98.5); ABG PCO2 19.5 mmHg (35.0-45.0); ABG PH 7.365 (7.350-7.450); ABG PO2 136.3 mmHg (75.0-100.0); AaDO2 126.5 mmHg; COHb 0.3 % (0.5-1.5); MetHb 0.8 % (0.0-1.5); O2Hb 96.7 % (94.0-97.0); PEEP,BG 0 cm H2O; SITE, ABG A-Line
[2017-08-23] MEDS ORDERED: PANTOPRAZOLE 40 MG VIAL IV SCH (09:00)
[2017-08-23] MEDS: Z GUARD REMEDY 2 OZ OINT TP SCH (09:28)
--- NOTE | 2017-08-23 13:21 | NUR ---
RT PATIENT WAS PRONOUNCED WITH NO PULSE AND ZERO READINGS ON MONITORS. PER FAMILY REQUEST VENT TURNED OFF AND ETT REMOVED. FAMILY AT BEDSIDE.
--- NOTE | 2017-08-23 14:29 | NUR ---
RN NOTE 1318: Noted patient asystole, family at bedside. Assessed together with the primary nurse, unable to appreciate pulse. No heart sound through auscultation. Informed family patient . Dr. Cheung made aware. 1350: Called [facility] and made aware patient , not a candidate per Divina. With episode of one of the sons shouting, cursing and misunderstanding with other family members, called security and [employer] to help control situation, nurse sup aware. Called [facility], per Melida, unable to come early and asked to bring body to morgue instead. Made family at bedside aware. Given time and privacy for grieving, iraj them call staffs when ready to clean body and bring to morgue.
== END 2017-08-23 13:18 | disposition expired | DRG 871 ==
LOC: ER 17:21 → MED 19:58 → TELE 08-19 06:08 → MED 08-19 09:06 → ICU 08-20 01:00
PROVIDERS: ADMIT Internal Medicine; ATTEND Internal Medicine
PROC: 5A1945Z Respiratory Ventilation, 24-96 Consecutive Hours (ICD-10-PCS; principal; 2017-08-20)
PROC: 0BH17EZ Insertion of Endotracheal Airway into Trachea, Via Natural or Artificial Opening (ICD-10-PCS; 2017-08-20)
PROC: 02HV33Z Insertion of Infusion Device into Superior Vena Cava, Percutaneous Approach (ICD-10-PCS; 2017-08-20)
PROC: B548ZZA Ultrasonography of Superior Vena Cava, Guidance (ICD-10-PCS; 2017-08-20)
PROC: 02HV33Z Insertion of Infusion Device into Superior Vena Cava, Percutaneous Approach (ICD-10-PCS; 2017-08-20)
PROC: B548ZZA Ultrasonography of Superior Vena Cava, Guidance (ICD-10-PCS; 2017-08-20)
DX: A41.9 Sepsis, unspecified organism (principal); J96.01 Acute respiratory failure with hypoxia; K65.2 Spontaneous bacterial peritonitis; I21.A1 Myocardial infarction type 2; E43 Unspecified severe protein-calorie malnutrition; R65.21 Severe sepsis with septic shock; N18.6 End stage renal disease; G93.40 Encephalopathy, unspecified; G93.6 Cerebral edema; I13.2 Hypertensive heart and chronic kidney disease with heart failure and with stage 5 chronic kidney disease, or end stage renal disease; I50.32 Chronic diastolic (congestive) heart failure; N17.9 Acute kidney failure, unspecified; E11.52 Type 2 diabetes mellitus with diabetic peripheral angiopathy with gangrene; E87.1 Hypo-osmolality and hyponatremia; Z99.11 Dependence on respirator [ventilator] status; E87.2 Acidosis; K55.9 Vascular disorder of intestine, unspecified; G40.209 Localization-related (focal) (partial) symptomatic epilepsy and epileptic syndromes with complex partial seizures, not intractable, without status epilepticus; D68.59 Other primary thrombophilia; D72.823 Leukemoid reaction; Z51.5 Encounter for palliative care; Z66 Do not resuscitate; E11.22 Type 2 diabetes mellitus with diabetic chronic kidney disease; Z99.2 Dependence on renal dialysis; Z89.512 Acquired absence of left leg below knee; Z89.511 Acquired absence of right leg below knee; Z79.899 Other long term (current) drug therapy; Z79.82 Long term (current) use of aspirin; R62.7 Adult failure to thrive; Z79.84 Long term (current) use of oral hypoglycemic drugs; I11.0 Hypertensive heart disease with heart failure; D63.8 Anemia in other chronic diseases classified elsewhere; E78.5 Hyperlipidemia, unspecified; Z74.09 Other reduced mobility; Z68.34 Body mass index [BMI] 34.0-34.9, adult; E66.9 Obesity, unspecified; D47.3 Essential (hemorrhagic) thrombocythemia; K29.80 Duodenitis without bleeding; K63.89 Other specified diseases of intestine; K21.0 Gastro-esophageal reflux disease with esophagitis; D12.3 Benign neoplasm of transverse colon; E83.59 Other disorders of calcium metabolism; J45.909 Unspecified asthma, uncomplicated; E87.5 Hyperkalemia; H57.04 Mydriasis
CPT/HCPCS: 31720; 36415; 36569; 36600; 70450-TC; 70496-TC; 71045-TC; 71270-TC; 74018; 74178; 76705-TC; 80048-TC; 80053-TC; 80061-TC; 80076-TC; 80202-TC; 82272-TC; 82803-TC; 82962-TC; 83540-TC; 83605-TC; 83690-TC; 83735-TC; 84100-TC; 84443-TC; 84484-TC; 85025-TC; 85730-TC; 87040-TC; 87070-TC; 87081-TC; 90935-TC; 94002-TC; 94003-TC; 94640-TC; 94762-TC; 95819-TC; 99082-TC; A4216; A4606; A6402; C1751; C9113; J1450; J1815; J2370; J2405; J2543; J3370; J3490; J7030; J7040; J7050; J7060; J7070; Q9967; Z7610